=== PATIENT | female | born 1985 | race Caucasian/White ===

== ENCOUNTER 2019-05-14 12:20 | Emergency (ER) | payer OTHER ==
[2019-05-14 12:36] VITALS: RESP 18; TEMP 98.1
[2019-05-14 13:21] LABS: Amphetamine Screen,Urine Detected (NotDetected); Barbiturate Screen,Urine Not Detected (NotDetected); Benzodiazepines Screen,Urine Not Detected (NotDetected); Cocaine Screen,Urine Not Detected (NotDetected); Methadone Screen, Urine Not Detected (NotDetected); Opiate Screen,Urine Not Detected (NotDetected); Oxycodone Screen, Urine Not Detected (NotDetected); Phencyclidine Screen,Urine Not Detected (NotDetected); Tricyclic Antidepressant,Urine Not Detected (NotDetected); Urn Cannabinoid Scrn Not Detected (NotDetected)
--- NOTE | 2019-05-14 13:22 | ED ---
General Adult HPI - General Chief complaint: Psychiatric Symptoms Stated complaint: Confusion Time Seen by Provider: 05/14/19 12:37 Source: patient, family, RN notes reviewed, old records reviewed Mode of arrival: wheelchair - History of Present Illness Initial comments: 33 -year-old female presenting for psychiatric evaluation. Patient has had increased anxiety, suicidal ideation and drug use. She admits to using methamphetamine. She was trying to stop using drugs. She's had increased auditory hallucinations. She is requesting social work consultation. Patient is able answer questions but is somewhat reluctant. - Related Data Allergies Allergy/AdvReac Type Severity Reaction Status Date / Time No Known Allergies Allergy Verified 05/14/19 12:24 Review of Systems ROS Statement: Those systems with pertinent positive or pertinent negative responses have been documented in the HPI. ROS Other: All systems not noted in ROS Statement are negative. Past Medical History Past Medical History: No Reported History History of Any Multi-Drug Resistant Organisms: None Reported Past Surgical History: No Surgical Hx Reported Past Psychological History: Anxiety, Depression Smoking Status: Never smoker Past Alcohol Use History: None Reported Past Drug Use History: None Reported, Methamphetamine General Exam General appearance: alert, in no apparent distress Head exam: Present: atraumatic, normocephalic Eye exam: Present: normal appearance, PERRL ENT exam: Present: normal exam Neck exam: Present: normal inspection. Absent: tenderness, meningismus Respiratory exam: Present: normal lung sounds bilaterally. Absent: respiratory distress, wheezes Cardiovascular Exam: Present: regular rate, normal rhythm GI/Abdominal exam: Present: soft. Absent: distended, tenderness, guarding Extremities exam: Present: normal inspection Neurological exam: Present: alert, oriented X3, CN II-XII intact. Absent: motor sensory deficit Psychiatric exam: Present: depressed, anxious, flat affect, suicidal ideation Skin exam: Present: warm, dry, intact Course Vital Signs 05/14/19 12:24 Temperature 98.1 F Pulse Rate 88 Respiratory 18 Rate Blood Pressure 136/95 O2 Sat by Pulse 100 Oximetry Medical Decision Making - Medical Decision Making Patient evaluated by EPS, will require inpatient psychiatric evaluation and treatment. Patient will be transferred to outside facility. Patient is agreeable with plan. - Lab Data Lab Results 05/14/19 Range/Units 12:49 Urine Opiates Screen Not Detected (NotDetected) Ur Oxycodone Screen Not Detected (NotDetected) Urine Methadone Screen Not Detected (NotDetected) Ur Propoxyphene Screen Not Detected (NotDetected) Ur Barbiturates Screen Not Detected (NotDetected) U Tricyclic Antidepress Not Detected (NotDetected) Ur Phencyclidine Scrn Not Detected (NotDetected) Ur Amphetamines Screen Detected H (NotDetected) U Methamphetamines Scrn Detected H (NotDetected) U Benzodiazepines Scrn Not Detected (NotDetected) Urine Cocaine Screen Not Detected (NotDetected) U Marijuana (THC) Screen Not Detected (NotDetected) Disposition Clinical Impression: Depression, Suicidal ideation, Acute psychosis Disposition: TRANSFER TO PSYCH HOSP/UNIT Condition: Stable Is patient prescribed a controlled substance at d/c from ED?: No Referrals: None,Stated [Primary Care Provider] - 1-2 days Time of Disposition: 16:34 - Out of Hospital Transfer - Req. Specs Out of Hospital Transfer - Requested Specifics: Psychiatric Non-ICU
[2019-05-14 16:48] LABS: Amorphous Sediment,Urine Occasional /hpf; Appearance,Urine Clear (Clear); Bacteria,Urine Rare /hpf; Bilirubin,Urine Negative (Negative); Blood,Urine Negative (Negative); Color,Urine Yellow; Glucose,Urine (UA) Negative (Negative); Ketones,Urine Negative (Negative); Leukocyte Esterase,Urine Trace (Negative); Mucus,Urine Occasional /hpf; Nitrite,Urine Negative (Negative); PH, Urine 6.5 (5.0-8.0); Protein,Urine Negative (Negative); RBC,Urine 1 /hpf (0-5); Specific Gravity,Urine 1.022 (1.001-1.035); Squamous Epithelial Cell,Urine 11 /hpf (0-4); Urobilinogen,Urine <2.0 mg/dL (<2.0); WBC,Urine 9 /hpf (0-5)
[2019-05-14 17:10] LABS: HCT 35.4 % (34.0-46.0); HGB 11.7 gm/dL (11.4-16.0); MCH 29.4 pg (25.0-35.0); MCHC 33.1 g/dL (31.0-37.0); MCV 88.9 fL (80.0-100.0); Mean Platelet Volume 6.8; Platelet Count 330 k/uL (150-450); RBC 3.98 m/uL (3.80-5.40); RDW 12.8 % (11.5-15.5); WBC 8.6 k/uL (3.8-10.6)
[2019-05-14 17:28] LABS: ALT 8 U/L (9-52); AST 19 U/L (14-36); African American GFR (CKD) >90 (>60 ml/min/1.73 sqM); Albumin 3.9 g/dL (3.5-5.0); Alkaline Phosphatase 50 U/L (38-126); Anion Gap 9 mmol/L; Blood Urea Nitrogen 15 mg/dL (7-17); Calcium 9.4 mg/dL (8.4-10.2); Carbon Dioxide 24 mmol/L (22-30); Chloride 106 mmol/L (98-107); Glucose 130 mg/dL (74-99); Potassium 3.8 mmol/L (3.5-5.1); Sodium 139 mmol/L (137-145); Total Bilirubin 0.3 mg/dL (0.2-1.3); Total Protein 6.4 g/dL (6.3-8.2)
[2019-05-14] MEDS ORDERED: LORazepam 1 MG TAB PO STA ×2 (17:37→17:39)
[2019-05-14] MEDS ORDERED: ZIPRASIDONE 20 MG VIAL IM STA (17:50)
[2019-05-14 18:06] VITALS: BP 139/88; PULSE 91
== END 2019-05-14 18:20 ==
LOC: EC 12:20
DX: F23 Brief psychotic disorder (principal); R45.851 Suicidal ideations; F32.9 Major depressive disorder, single episode, unspecified; F19.951 Other psychoactive substance use, unspecified with psychoactive substance-induced psychotic disorder with hallucinations; F41.9 Anxiety disorder, unspecified
CPT/HCPCS: 82075; 36415; 80053; 85027; 81001; 81025; 80306; 99285; 96372; J3486

== ENCOUNTER 2021-03-05 12:18 | Emergency (ER) | payer OTHER ==
[2021-03-05 12:28] VITALS: BP 145/103; PULSE 88; RESP 18; TEMP 98.7
--- NOTE | 2021-03-05 12:47 | ED ---
General Adult HPI - General Chief complaint: Psychiatric Symptoms Stated complaint: pickup order Time Seen by Provider: 03/05/21 12:21 Source: patient, police Mode of arrival: ambulatory Limitations: no limitations - History of Present Illness Initial comments: Dictation was produced using [employer] dictation software. please excuse any grammatical, word or spelling errors. Chief Complaint: 35-year-old female presents to the emergency department for psychiatric evaluation History of Present Illness: Patient is a 35-year-old female she is brought in by [place] [employer]. There was a pickup order. Patient allegedly exhibiting psychotic symptoms. She states she is paranoid about cyber criminal ask directed against her. Patient allegedly has had psychiatric evaluation in the past. Patient denies any suicidal or homicidal ideation. She denies any visual or auditory hallucinations. She feels as though she is not needing of a psychiatric evaluation but is voluntarily willing to talk to her EPS specialist. Patient denies any medical complaints. The ROS documented in this emergency department record has been reviewed and confirmed by me. Those systems with pertinent positive or negative responses have been documented in the HPI. All other systems are other negative and/or noncontributory. PHYSICAL EXAM: General Impression: Alert and oriented x3, not in acute distress HEENT: Normocephalic atraumatic, extra-ocular movements intact, pupils equal and reactive to light bilaterally, mucous membranes moist. Cardiovascular: Heart regular rate and rhythm Chest: Able to complete full sentences, no retractions, no tachypnea Abdomen: abdomen soft, non-tender, non-distended, no organomegaly Musculoskeletal: Pulses present and equal in all extremities, no peripheral edema Motor: no focal deficits noted Neurological: CN II-XII grossly intact, no focal motor or sensory deficits noted Skin: Intact with no visualized rashes Psych: Paranoid ED course: 35-year-old female with paranoid behavior brought in by [place] [employer] for psychiatric evaluation secondary to package pick up order. Vital signs upon arrival are within acceptable limits. She was evaluated by psychiatry. Recommended admission. Prior to disposition to inpatient psychiatry patient eloped. Enforcement was contacted to find pa tient and bring her back to the emergency room. - Related Data Home Medications Medication Instructions Recorded Confirmed No Known Home Medications 03/05/21 03/05/21 Allergies Allergy/AdvReac Type Severity Reaction Status Date / Time No Known Allergies Allergy Verified 03/05/21 13:23 Review of Systems ROS Statement: Those systems with pertinent positive or pertinent negative responses have been documented in the HPI. ROS Other: All systems not noted in ROS Statement are negative. Past Medical History Past Medical History: No Reported History History of Any Multi-Drug Resistant Organisms: None Reported Past Surgical History: No Surgical Hx Reported Past Psychological History: Anxiety, Depression Smoking Status: Unknown if ever smoked Past Alcohol Use History: None Reported Past Drug Use History: None Reported, Methamphetamine General Exam Limitations: no limitations Course Vital Signs 03/05/21 12:19 Temperature 98.7 F Pulse Rate 88 Respiratory 18 Rate Blood Pressure 145/103 O2 Sat by Pulse 98 Oximetry Medical Decision Making - Lab Data Lab Results 03/05/21 03/05/21 Range/Units 12:45 12:45 Urine HCG, Qual Not Detected (Not Detectd) Urine Opiates Screen Not Detected (NotDetected) Ur Oxycodone Screen Not Detected (NotDetected) Urine Methadone Screen Not Detected (NotDetected) Ur Propoxyphene Screen Not Detected (NotDetected) Ur Barbiturates Screen Not Detected (NotDetected) U Tricyclic Antidepress Not Detected (NotDetected) Ur Phencyclidine Scrn Not Detected (NotDetected) Ur Amphetamines Screen Not Detected (NotDetected) U Methamphetamines Scrn Not Detected (NotDetected) U Benzodiazepines Scrn Not Detected (NotDetected) Urine Cocaine Screen Not Detected (NotDetected) U Marijuana (THC) Screen Not Detected (NotDetected) Disposition Clinical Impression: Psychosis Disposition: OTHER INSTITUTION NOT DEFINED Condition: Fair Additional Instructions: eloped Is patient prescribed a controlled substance at d/c from ED?: No Referrals: None,Stated [Primary Care Provider] - 1-2 days - Out of Hospital Transfer - Req. Specs Out of Hospital Transfer - Requested Specifics: Other Non-Acute (eloped)
[2021-03-05 13:03] LABS: Amphetamine Screen,Urine Not Detected (NotDetected); Barbiturate Screen,Urine Not Detected (NotDetected); Benzodiazepines Screen,Urine Not Detected (NotDetected); Cocaine Screen,Urine Not Detected (NotDetected); Methadone Screen, Urine Not Detected (NotDetected); Opiate Screen,Urine Not Detected (NotDetected); Oxycodone Screen, Urine Not Detected (NotDetected); Phencyclidine Screen,Urine Not Detected (NotDetected); Tricyclic Antidepressant,Urine Not Detected (NotDetected); Urn Cannabinoid Scrn Not Detected (NotDetected)
== END 2021-03-05 13:28 | disposition other institution (70) ==
LOC: EEVIPCON 12:18 → EC 12:18
DX: F29 Unspecified psychosis not due to a substance or known physiological condition (principal); F32.9 Major depressive disorder, single episode, unspecified; F41.9 Anxiety disorder, unspecified
CPT/HCPCS: 80306; 81025; 82075; 99285

== ENCOUNTER 2021-03-05 23:50 | Inpatient (IN) | payer MEDICAID, OTHER ==
--- NOTE | 2021-03-06 00:35 | ED ---
Psych HPI - General Chief Complaint: Psychiatric Symptoms Stated Complaint: Mental Health Time Seen by Provider: 03/05/21 23:53 Source: patient, RN notes reviewed, old records reviewed Mode of arrival: EMS Limitations: altered mental status, physical limitation - History of Present Illness Initial Comments: This is a 35-year-old female with acute psychosis patient brought in by PD after U opening prior to inpatient psychiatric admission. Patient is a evasive questioning, patient denies drug or alcohol abuse MD Complaint: altered mental status Associated Psychiatric Symptoms: none History of same: Yes Quality: other Improves With: none Worsens With: none Context: not taking psychiatric medications, significant life stressor Associated Symptoms: confusion Treatments Prior to Arrival: placed on mental health hold - Related Data Home Medications Medication Instructions Recorded Confirmed No Known Home Medications 03/05/21 03/05/21 Allergies Allergy/AdvReac Type Severity Reaction Status Date / Time No Known Allergies Allergy Verified 03/06/21 00:11 Review of Systems ROS Statement: Those systems with pertinent positive or pertinent negative responses have been documented in the HPI. ROS Other: All systems not noted in ROS Statement are negative. Past Medical History Past Medical History: No Reported History History of Any Multi-Drug Resistant Organisms: None Reported Past Surgical History: No Surgical Hx Reported Past Psychological History: Anxiety, Depression Smoking Status: Never smoker, Unknown if ever smoked Past Alcohol Use History: None Reported Past Drug Use History: Marijuana General Exam Limitations: no limitations, altered mental status General appearance: alert, in no apparent distress, anxious Head exam: Present: atraumatic, normocephalic, normal inspection Eye exam: Present: normal appearance, PERRL, EOMI. Absent: scleral icterus, conjunctival injection, periorbital swelling ENT exam: Present: normal exam, mucous membranes moist Neck exam: Present: normal inspection. Absent: tenderness, meningismus, lymphadenopathy Respiratory exam: Present: normal lung sounds bilaterally. Absent: respiratory distress, wheezes, rales, rhonchi, stridor Cardiovascular Exam: Present: regular rate, normal rhythm, normal heart sounds. Absent: systolic murmur, diastolic murmur, rubs, gallop, clicks GI/Abdominal exam: Present: soft, normal bowel sounds. Absent: distended, tenderness, guarding, rebound, rigid Extremities exam: Present: normal inspection, full ROM, normal capillary refill. Absent: tenderness, pedal edema, joint swelling, calf tenderness Back exam: Present: normal inspection Neurological exam: Present: alert, oriented X3, CN II-XII intact Psychiatric exam: Present: normal affect, normal mood Skin exam: Present: warm, dry, intact, normal color. Absent: rash Course Vital Signs 03/06/21 00:04 Temperature 98.4 F Pulse Rate 95 Respiratory 16 Rate Blood Pressure 125/81 O2 Sat by Pulse 97 Oximetry - Reevaluation(s) Reevaluation #1: 03/06/21 01:06 Medical record is reviewed Reevaluation #2: 03/06/21 01:06 Medically clear for psychiatric evaluation Medical Decision Making - Medical Decision Making 35 female on pickup order with acute psychosis brought in the ER for evaluation. Patient was able to somehow elope was found brought back to ER will be admitted for psychiatric illness - Lab Data Lab Results 03/05/21 03/05/21 Range/Units 23:57 23:59 Urine Opiates Screen Not Detected (NotDetected) Ur Oxycodone Screen Not Detected (NotDetected) Urine Methadone Screen Not Detected (NotDetected) Ur Propoxyphene Screen Not Detected (NotDetected) Ur Barbiturates Screen Not Detected (NotDetected) U Tricyclic Antidepress Not Detected (NotDetected) Ur Phencyclidine Scrn Not Detected (NotDetected) Ur Amphetamines Screen Not Detected (NotDetected) U Methamphetamines Scrn Not Detected (NotDetected) U Benzodiazepines Scrn Not Detected (NotDetected) Urine Cocaine Screen Not Detected (NotDetected) U Marijuana (THC) Screen Detected H (NotDetected) Coronavirus (PCR) Not Detected (Not Detectd) Disposition Clinical Impression: Psychosis Disposition: TRANSFER TO PSYCH HOSP/UNIT Condition: Fair Is patient prescribed a controlled substance at d/c from ED?: No
[2021-03-06 00:45] LABS: Amphetamine Screen,Urine Not Detected (NotDetected); Barbiturate Screen,Urine Not Detected (NotDetected); Benzodiazepines Screen,Urine Not Detected (NotDetected); Cocaine Screen,Urine Not Detected (NotDetected); Methadone Screen, Urine Not Detected (NotDetected); Opiate Screen,Urine Not Detected (NotDetected); Oxycodone Screen, Urine Not Detected (NotDetected); Phencyclidine Screen,Urine Not Detected (NotDetected); Tricyclic Antidepressant,Urine Not Detected (NotDetected); Urn Cannabinoid Scrn Detected (NotDetected)
[2021-03-06] MEDS ORDERED: MAGNESIUM HYDROXIDE 2,400 MG/10 ML CUP PO PRN (00:51)
[2021-03-06] MEDS ORDERED: MAG HYDROX/AL HYDROX/SIMETH 30 ML CUP PO PRN (00:51)
[2021-03-06] MEDS ORDERED: LORazepam 2 MG/ML INJ IM PRN (00:54)
[2021-03-06] MEDS ORDERED: HALOPERIDOL LACTATE 5 MG/ML 1 ML VIAL IM PRN (00:55)
--- NOTE | 2021-03-06 03:01 | P.CONS ---
History of Present Illness - Reason for Consult Consult date: 03/06/21 - History of Present Illness The patient was seen with the mental health unit [facility] [place]. I was never alone with the patient. Patient is a 35-year-old female with a PMH of psychiatric illnesses, marijuana abuse, and tobacco abuse who presented to the emergency room due to psychosis. The patient was manic and was admitted to the mental health unit where she was seen and evaluated. Patient reports that she is not sure why she was brought in. She went on about how she was framed for a cyber-crime and that the FBI is after her. She denied any physical complaints. She denied chest pain, shortness of breath, fever, chills, cough, nausea, vomiting, abdominal pain, diarrhea. Review of systems: Pertinent positives and negatives as discussed in HPI, a complete review of systems was performed and all other systems are negative. Physical examination: General: non toxic, no distress, appears at stated age, normal weight Derm: no unusual rashes/lesions no unusual ecchymoses, warm, dry Head: atraumatic, normocephalic, symmetric Eyes: EOMI, no lid lag, anicteric sclera, pupils equal round reactive to light ENT: Nose and ears atraumatic, no thrush, no pharyngeal erythema Neck: No thyromegaly, no cervical lymphadenopathy, trachea midline, supple Mouth: no lip lesion, mucus membranes moist Cardiovascular: S1S2 reg, no murmur, positive posterior tibial pulse bilateral, no edema, capillary refill less than 2 seconds Lungs: CTA bilateral, no rhonchi, no rales , no accessory muscle use Abdominal: soft, nontender to palpation, no guarding, no appreciable organomegaly, normal bowel sounds Ext: no gross muscle atrophy, muscle strength 5 out of 5 in all 4 extremities grossly, no contractures, Neuro: CN II-XI grossly intact, light touch intact all 4 extremities, finger to nose within normal limits, Psych: Alert, oriented, manic affect Assessment/plan Marijuana and tobacco abuse -Advised on importance of cessation Psychosis -As per psychiatry Thank you for allowing us to participate in the care of this patient. We will follow peripherally. Do not hesitate to contact us with questions. Someone can be reached from the [facility] hospitalist group at all hours of the day at [phone]. Past Medical History Past Medical History: No Reported History History of Any Multi-Drug Resistant Organisms: None Reported Past Surgical History: No Surgical Hx Reported Past Psychological History: Anxiety, Depression Smoking Status: Never smoker, Unknown if ever smoked Past Alcohol Use History: None Reported Past Drug Use History: Marijuana - Past Family History Father Family Medical History: COPD Medications and Allergies Home Medications Medication Instructions Recorded Confirmed Type No Known Home Medications 03/05/21 03/05/21 History Allergies Allergy/AdvReac Type Severity Reaction Status Date / Time No Known Allergies Allergy Verified 03/06/21 00:11 Physical Exam Vitals: Vital Signs Temp Pulse Pulse Resp BP BP Pulse Ox 03/06/21 01:43 98.4 F 85 18 132/89 98 03/06/21 00:04 98.4 F 95 16 125/81 97 Intake and Output 03/05/21 03/05/21 03/06/21 14:59 22:59 06:59 Other: Weight 57.7 kg Results Labs: Abnormal Lab Results - Last 24 Hours (Table) 03/05/21 Range/Units 23:59 U Marijuana (THC) Screen Detected H (NotDetected)
[2021-03-06 03:44] LABS: Appearance,Urine Cloudy (Clear); Bilirubin,Urine Negative (Negative); Blood,Urine Negative (Negative); Color,Urine Yellow; Glucose,Urine (UA) Negative (Negative); Ketones,Urine Negative (Negative); Leukocyte Esterase,Urine Large (Negative); Mucus,Urine Moderate /hpf; Nitrite,Urine Negative (Negative); Protein,Urine 1+ (Negative); RBC,Urine 2 /hpf (0-5); Squamous Epithelial Cell,Urine 12 /hpf (0-4); Urobilinogen,Urine <2.0 mg/dL (<2.0); WBC,Urine 8 /hpf (0-5)
[2021-03-06] MEDS: haloperidoL 5 MG TAB PO SCH ×5 (09:16→21:59)
[2021-03-06] MEDS: NICOTINE 14MG/24HR PATCH TRANSDERM SCH ×2 (09:16→09:28)
--- NOTE | 2021-03-06 11:06 | P.HP ---
Psychiatric H&P - . H&P Date: 03/06/21 History & Physical: Allergies Allergy/AdvReac Type Severity Reaction Status Date / Time No Known Allergies Allergy Verified 03/06/21 00:11 Vital Signs Temp 98.4 F 03/06/21 01:43 Pulse 85 03/06/21 01:43 Resp 18 03/06/21 01:43 BP 132/89 03/06/21 01:43 Pulse Ox 98 03/06/21 01:43 Intake & Output 03/05/21 03/06/21 03/06/21 18:59 06:59 18:59 Weight 57.7 kg Laboratory Last Values Urine Color Yellow 03/05/21 23:59 Urine Appearance Cloudy (Clear) H 03/05/21 23:59 Urine pH 5.0 (5.0-8.0) 03/05/21 23:59 Ur Specific Ida 1.030 (1.001-1.035) 03/05/21 23:59 Urine Protein 1+ (Negative) H 03/05/21 23:59 Urine Glucose (UA) Negative (Negative) 03/05/21 23:59 Urine Ketones Negative (Negative) 03/05/21 23:59 Urine Blood Negative (Negative) 03/05/21 23:59 Urine Nitrite Negative (Negative) 03/05/21 23:59 Urine Bilirubin Negative (Negative) 03/05/21 23:59 Urine Urobilinogen <2.0 mg/dL (<2.0) 03/05/21 23:59 Ur Leukocyte Esterase Large (Negative) H 03/05/21 23:59 Urine RBC 2 /hpf (0-5) 03/05/21 23:59 Urine WBC 8 /hpf (0-5) H 03/05/21 23:59 Ur Squamous Epith Cells 12 /hpf (0-4) H 03/05/21 23:59 Urine Mucus Moderate /hpf (None) H 03/05/21 23:59 Urine HCG, Qual Not Detected (Not Detectd) 03/05/21 23:59 Urine Opiates Screen Not Detected (NotDetected) 03/05/21 23:59 Ur Oxycodone Screen Not Detected (NotDetected) 03/05/21 23:59 Urine Methadone Screen Not Detected (NotDetected) 03/05/21 23:59 Ur Propoxyphene Screen Not Detected (NotDetected) 03/05/21 23:59 Ur Barbiturates Screen Not Detected (NotDetected) 03/05/21 23:59 U Tricyclic Antidepress Not Detected (NotDetected) 03/05/21 23:59 Ur Phencyclidine Scrn Not Detected (NotDetected) 03/05/21 23:59 Ur Amphetamines Screen Not Detected (NotDetected) 03/05/21 23:59 U Methamphetamines Scrn Not Detected (NotDetected) 03/05/21 23:59 U Benzodiazepines Scrn Not Detected (NotDetected) 03/05/21 23:59 Urine Cocaine Screen Not Detected (NotDetected) 03/05/21 23:59 U Marijuana (THC) Screen Detected (NotDetected) H 03/05/21 23:59 Coronavirus (PCR) Not Detected (Not Detectd) 03/05/21 23:57 03/06/21 11:05 IDENTIFYING DATA: Patient is a , unemployed, 35 year old female who was admitted under a pickup order for psychosis. HPI: Patient presented to the hospital initially on 03/05/2021, but then eloped from the emergency department. As per initial EPS assessment on 03/05/2021, the patient was brought in by police after she was petitioned by her public guardian for noncompliance with treatment, delusions, and paranoia. She was noted to be argumentative with the EPS nurse and was preoccupied with thoughts of conspiracy theories, cyber crime, and paranoia towards her parents. She did note that she believes that her mother was buying illegal medications and trafficking them throughout the country. As per petitioned from the patient's public guardian, the patient was offered treatment but refused. She wanted proof provided of who she was and who her father was. Her behavior was noted to be erratic and aggressive. There was concern for the safety of her parents and of her child. Upon evaluation on the psychiatric unit, the patient presents with significant psychotic symptoms. The patient states that this all began in 2019 when an individual is helping her with her car trouble. She believes that this individual then placed [employer] to her computer and since then, she has been experiencing numerous problems with application security developer and surveillance. The patient also states that this is likely related to the "FBI monitoring and watching my mother as she is selling Sudafed throughout the country." Aside from the paranoia, the patient does endorse aud itory hallucinations. She reports that when she is on the phone, she can hear other people in the background listening in on her conversations. She denies any visual hallucinations. The patient was hospitalized in [place] in 2019 for a similar presentation but the patient states that she was let go after 3 days and was only given Restoril as a medication. The patient does endorse significant symptoms of paulino. She reports pressured speech, and excessive energy. She does not endorse any impulsivity, mood lability, or increased goal-directed behavior. It should be noted though that the guardian does note that the patient has been erratic and aggressive with family. The patient vehemently denies any past suicidal ideation or suicide attempts. She reports no homicidal ideation, intention, and/or plan. The patient was admitted for further evaluation and management. A second clinical certificate was filled out. PAST PSYCHIATRIC HISTORY: Patient states that she has no previous psychiatric diagnoses. She was admitted to [place] in 2019. The patient is only able to recall being previously prescribed Restoril. Patient denies any psychiatric outpatient follow-up. Patient denies any history of suicide attempts in the past. PMH: Past Medical History: No Reported History History of Any Multi-Drug Resistant Organisms: None Reported Past Surgical History: No Surgical Hx Reported Past Psychological History: Anxiety, Depression Smoking Status: Never smoker, Unknown if ever smoked Past Alcohol Use History: None Reported Past Drug Use History: Marijuana ALLERGIES: NO KNOWN DRUG ALLERGIES CHEMICAL DEPENDENCY HISTORY: Patient reports that she does not smoke, drink, or use illicit drugs. The patient states that she stopped smoking marijuana in 2019 but she did test positive for cannabis on her urinary drug screen for this hospitalization. The patient states that prior to stopping her marijuana use in 2019, she engaged in daily marijuana use. FAMILY PSYCHIATRIC/SUBSTANCE USE HISTORY: No reported psychiatric history. No reported substance abuse history. SOCIAL HISTORY: Patient was born in [place] and raised in [facility]. The patient is and has 3 children. Currently her and her are as she is living with her parents and he is living with his parents. She reports that she has 3 children ages 17, 14, and 12. She reports that her 14-year-old daughter staying with her mother and father while her 17-year-old daughter and 12-year-old son are currently with her [id number]. The patient reports that she has a college degree. She is currently unemployed. MENTAL STATUS EXAM: General Appearance: Patient appears to be stated age is alert, difficult to direct, and attempts to cooperate. Patient appears to have fair hygiene and grooming. Behavior: Psychomotor activity is elevated. Eye contact is intense. Patient is constantly fidgeting and moving. Speech: Patient's speech is pressured, spontaneous, and difficult to interrupt. Mood/Affect: Patient reports their mood is confused, affect is labile, expansive, fearful. Suicidality/Homicidality: Patient denies having any homicidal ideation intent or plan. Denies any suicidal ideations intent or plan Perceptions: Patient denies any visual hallucinations but does endorse auditory hallucinations. Though content/process: Delusional thought content is evident. Delusions of surveillance, persecution, and bizarre delusions are evident. This associations and tangentiality is evident as well. Memory and concentration: AOX3, grossly intact for the purposes of this session. Can spell "WORLD" backwards Judgment and insight: Very poor STRENGTHS/WEAKNESSES: Strength is that the patient has stable housing and a supportive family. Weakness is that the patient engages in marijuana use and has severe mental illness with lack of insight. INTELLECT: average IMPRESSIONS: Schizoaffective disorder, bipolar type Cannabis use disorder PLAN: -Patient is admitted under involuntary status to [facility] for stabilization of psychiatric symptoms and safety. A second certification was completed and along with petition will be filed for court. -Medications : Will start patient on Invega 3 mg at bedtime for psychosis/mood stabilization - we will likely transition the patient to long-acting Invega Sustenna [place] 450 mg by mouth twice a day for mood stabilization -Ativan and Haldol PRN for agitation/aggression -Patient was counselled on substance abuse and desired to cut back on use -Patient was informed of the risks, benefits and side effects of the medication and patient verbally consented to taking the medications. Patient signed med consent form and was placed in chart. -Internal Medicine consult to perform medical evaluation and physical. -SW on board for discharge planning. Encourage patient to participate in groups to work on coping skills. 03/06/21 11:06
[2021-03-06] MEDS: PALIPERIDONE 3 MG TAB.ER.24 PO SCH (21:59)
[2021-03-06] MEDS: LITHIUM CARBONATE 150 MG CAP PO SCH (21:59)
[2021-03-07 08:01] LABS: Basophils # (A) 0.1 k/uL (0-0.2); Basophils % (A) 1 %; Eosinophils # (A) 0.3 k/uL (0-0.7); Eosinophils % (A) 3 %; HCT 42.7 % (34.0-46.0); HGB 13.4 gm/dL (11.4-16.0); Lymphocytes # (A) 3.1 k/uL (1.0-4.8); Lymphocytes % (A) 34 %; MCH 28.9 pg (25.0-35.0); MCHC 31.4 g/dL (31.0-37.0); MCV 92.3 fL (80.0-100.0); Monocytes # (A) 0.4 k/uL (0-1.0); Monocytes % (A) 4 %; Neutrophils # (A) 5.2 k/uL (1.3-7.7); Neutrophils % (A) 56 %; Platelet Count 352 k/uL (150-450); RBC 4.62 m/uL (3.80-5.40); RDW 13.7 % (11.5-15.5); WBC 9.4 k/uL (3.8-10.6)
[2021-03-07 08:14] LABS: ALT 10 U/L (4-34); AST 27 U/L (14-36); African American GFR (CKD) >90 (>60 ml/min/1.73 sqM); Albumin 4.5 g/dL (3.5-5.0); Alkaline Phosphatase 46 U/L (38-126); Anion Gap 8 mmol/L; Blood Urea Nitrogen 17 mg/dL (7-17); Calcium 9.8 mg/dL (8.4-10.2); Carbon Dioxide 25 mmol/L (22-30); Chloride 103 mmol/L (98-107); Glucose 90 mg/dL (74-99); Non-African American GFR(CKD) >90 (>60 ml/min/1.73 sqM); Potassium 4.3 mmol/L (3.5-5.1); Sodium 136 mmol/L (137-145); Total Bilirubin 0.6 mg/dL (0.2-1.3); Total Protein 7.1 g/dL (6.3-8.2)
[2021-03-07] MEDS: LITHIUM CARBONATE 150 MG CAP PO SCH ×2 (08:38→21:38)
[2021-03-07] MEDS: haloperidoL 5 MG TAB PO SCH ×4 (08:38→21:38)
[2021-03-07] MEDS: NICOTINE 14MG/24HR PATCH TRANSDERM SCH (08:38)
--- NOTE | 2021-03-07 11:22 | P.PN ---
Progress Note - Text Progress Note Date: 03/07/21 Interval History: Patient was seen in her room and was directable and agreeable to speak with service writer in her room. Patient refused any of her prescribed psychotropic medications yesterday stating that she did not need them as the cyberstalking and other paranoid delusions are actually happening. She states that she documented everything that has been going on and is planning to give the papers that she has been writing to her litigation attorney. The patient does state that she was able to sleep last night. She denies any issues with her appetite. She is not reporting any suicidal or homicidal ideation, intention, and/or plan. She continues to endorse paranoia and other bizarre delusions but is denying any auditory or visual hallucinations. The patient is requesting medications to treat the anxiety of these acute and ongoing stressors. She states that she does not need any antipsychotic medication if she is not psychotic. Mental Status Exam: General Appearance: Patient appears to be stated age is alert, difficult to direct, and intermittently cooperative. Behavior: Psychomotor activity is elevated. Eye contact is intense. Speech: Patient's speech is pressured, difficult to interrupt, loud in volume, very rapid. Mood/Affect: Mood is very anxious. Affect is intense and expansive. Suicidality/Homicidality: Patient denies having any suicidal or homicidal ideation intent or plan. Perceptions: Patient denies any visual hallucinations and denies any auditory hallucinations Though content/process: Significant bizarre delusional thought content and paranoid delusions are evident. Flight of ideas and loose associations are evident. Memory and concentration: AOX3, grossly intact for the purposes of this session Judgment and insight: Very poor Vital Signs Temp 97.8 F 03/07/21 02:08 Pulse 80 03/07/21 02:08 Resp 15 03/07/21 02:08 BP 145/93 03/07/21 02:08 Pulse Ox 98 03/06/21 01:43 Laboratory Results - Last 24 Hours 03/07/21 03/07/21 07:20 07:20 WBC 9.4 RBC 4.62 Hgb 13.4 Hct 42.7 MCV 92.3 MCH 28.9 MCHC 31.4 RDW 13.7 Plt Count 352 MPV 7.0 Neutrophils % 56 Lymphocytes % 34 Monocytes % 4 Eosinophils % 3 Basophils % 1 Neutrophils # 5.2 Lymphocytes # 3.1 Monocytes # 0.4 Eosinophils # 0.3 Basophils # 0.1 Sodium 136 L Potassium 4.3 Chloride 103 Carbon Dioxide 25 Anion Gap 8 BUN 17 Creatinine 0.71 Est GFR (CKD-EPI)AfAm >90 Est GFR (CKD-EPI)NonAf >90 Glucose 90 Calcium 9.8 Total Bilirubin 0.6 AST 27 ALT 10 Alkaline Phosphatase 46 Total Protein 7.1 Albumin 4.5 TSH 2.130 Assessment Schizoaffective disorder, bipolar type Cannabis use disorder Plan: -Patient continues to meet criteria for inpatient psychiatric admission for symptom stabilization and safety. The patient has been petitioned and certified and is scheduled to meet with an litigation attorney for possible deferral today. The patient will likely require a mental health court order due to the severity of her symptoms and lack of insight. -Medications: The patient has been refusing the following medications We will continue Invega 3 mg at bedtime for psychosis/mood stabilization response to transition the patient to Invega Sustenna We will continue lithium 450 mg by mouth twice a day for mood stabilization -When necessary Ativan and Haldol for agitation/aggression. -NRT - nicotine patch -SW on board for discharge planning. Encouraged the patient to participate in milieu.
[2021-03-07] MEDS: PALIPERIDONE 3 MG TAB.ER.24 PO SCH (21:19)
[2021-03-08] MEDS: LORazepam 1 MG TAB PO PRN ×2 (01:59→21:05)
[2021-03-08] MEDS ORDERED: haloperidoL 5 MG TAB PO PRN (08:22)
[2021-03-08] MEDS: NICOTINE 14MG/24HR PATCH TRANSDERM SCH (08:37)
[2021-03-08] MEDS: LITHIUM CARBONATE 150 MG CAP PO SCH ×2 (08:37→21:05)
--- NOTE | 2021-03-08 10:55 | P.PN ---
Progress Note - Text Progress Note Date: 03/08/21 Clinical Problems: Schizoaffective disorder bipolar type, cannabis use disorder Interim history: I reviewed the medical record and interviewed the patient. She is a 35-year-old female with a history of a chronic and persistent mental illness. She presented to unit involuntarily under a treatment order for noncompliance with treatment and worsening psychotic symptoms. During the initial assessment, her psychiatrist noted prominent psychotic symptoms including paranoia, paranoid delusions, ideas reference, disorganized thinking and auditory hallucinations. I approached her when she was in her room. She declined to come to the office for the interview. Her only concerned was correcting her admission orders (we had written the when necessary Haldol incorrectly as a scheduled dose). Her speech was disorganized and difficult to understand. Since admission to the unit she is posed no management problem. She has no episodes of behavioral dyscontrol. She has been compliant with prescribed antipsychotic paliperidone 3 mg at bedtime and lithium/milligrams twice a day. Mental status exam: She presented as a thin casually groomed female who was pleasant on approach. She had long braided hair. She made eye contact and appeared to attend to interview. She had no prominent physical abnormalities. She had a bright facial expression. She showed no abnormality of psychomotor activity. She had no abnormal involuntary movements. His speech was spontaneous with normal rhythm and volume. Her affect was stable and appropriate. She denied suicidal ideation and wishes. She denied homicidal ideation. She denied feeling hopeless, helpless or worthless. Her thinking was disorganized and illogical to the point where I could not fully evaluate her thought content. She denied hallucinations and did not appear to be responding to internal stimuli at this time. Assessment: She is pleasant and cooperated treatment. She is not refusing her prescribed antipsychotic medications and he is aware enough of treatment to identify an error we had made an her admission medications Plan: Continue inpatient treatment. Safety precautions. Change Haldol order to 5 mg 4 times a day when necessary for agitation acute psychosis. Continue Invega 3 mg at bedtime and lithium carbonate 450 mg twice a day. Obtain lithium level at steady state. Encourage participation in therapeutic groups and activities. Evaluate clinical status response to treatment daily basis.
[2021-03-08 16:29] LABS: Cholesterol 235 mg/dL (0-200); LDL Cholesterol,Calculated 119.8 mg/dL (0.0-131.0)
[2021-03-08] MEDS: PALIPERIDONE 3 MG TAB.ER.24 PO SCH (21:05)
[2021-03-09] MEDS: NICOTINE 14MG/24HR PATCH TRANSDERM SCH (08:21)
[2021-03-09] MEDS: LITHIUM CARBONATE 150 MG CAP PO SCH ×2 (08:23→20:55)
--- NOTE | 2021-03-09 12:50 | P.PN ---
Progress Note - Text Progress Note Date: 03/09/21 Clinical Problems: Schizoaffective disorder bipolar type, cannabis use disorder Interim history: I reviewed the medical record and interviewed the patient. She denied problems or concerns. She denied feeling depressed, hopeless or helpless. She denied feeling paranoid or frightened. She denied experiencing auditory or visual hallucinations. When I asked about some of her presenting complaints (paranoia, paranoid delusional beliefs, ideas reference and auditory hallucinations) she replied that she was "confused." She denied side effects to her current Medications-intake, and lithium. She attended one therapeutic groups yesterday and slept 8 hours. Mental status exam: She presented as a thin casually groomed female who was pleasant on approach. She made eye contact and appeared to attend to interview. She had no prominent physical abnormalities. She had a bright fac ial expression. She showed no abnormality of psychomotor activity. She had no abnormal involuntary movements. His speech was spontaneous with an increased rate but normal volume. Her affect was bright. She denied suicidal ideation and wishes. She denied homicidal ideation. She denied feeling hopeless, helpless or worthless. Her thinking was organized and goal directed. She denied hallucinations and did not appear to be responding to internal stimuli at this time. Assessment: Overall her clinical status is improved markedly (almost too well). Plan: Continue inpatient treatment. Safety precautions. Continue Invega 3 mg at bedtime and lithium carbonate 450 mg twice a day. Obtain lithium level at steady state. Haldol and her Ativan when necessary for agitation, aggression a cute psychosis. Encourage participation in therapeutic groups and activities. Evaluate clinical status response to treatment daily basis.
[2021-03-09] MEDS: PALIPERIDONE 3 MG TAB.ER.24 PO SCH (20:55)
[2021-03-09] MEDS: LORazepam 1 MG TAB PO PRN (20:56)
[2021-03-10] MEDS: LITHIUM CARBONATE 150 MG CAP PO SCH ×2 (07:57→21:12)
[2021-03-10] MEDS: NICOTINE 14MG/24HR PATCH TRANSDERM SCH (07:57)
--- NOTE | 2021-03-10 11:35 | P.PN ---
Progress Note - Text Progress Note Date: 03/10/21 Interval History: Patient was seen in her room and was directable and agreeable to speak with information writer in her room. The patient is currently reporting no suicidal or homicidal ideation, intention, and/or plan. She is denying any auditory or visual hallucinations. The patient reports mild bizarre delusional thoughts but these are less intense as before. She is also less forthcoming with any of her delusions. The patient has been adherent with her medications and is not endorsing any significant side effects and finds the medications be beneficial in terms of her mood and her thought process. She denies any issues regarding her appetite or sleep. She is agreeable with the plan to transition her to Invega Sustenna at this time. As per team meeting, the patient has been cooperative and attending groups with high participation. Mental Status Exam: General Appearance: Patient appears to be stated age is alert, directable, and cooperative. Good hygiene and grooming. Behavior: Psychomotor activity appears normal. Eye contact is appropriate. Speech: Patient's speech is spontaneous, slightly rapid, but no longer pressured and is much more interruptible. Mood/Affect: Mood is feeling good. Affect is euthymic to bright. Suicidality/Homicidality: Patient denies having any suicidal or homicidal ideation intent or plan. Perceptions: Patient denies any visual hallucinations and denies any auditory hallucinations Though content/process: the patient continues to endorse some bizarre delusional thoughts but is less forthcoming with them. Thought process appears to be linear and logical as compared to before. Memory and concentration: AOX3, grossly intact for the purposes of this session Judgment and insight: improving Assessment Schizoaffective disorder, bipolar type Cannabis use disorder Plan: -Patient continues to meet criteria for inpatient psychiatric admission for symptom stabilization and safety. The patient deferred mental health court. -Medications: The patient has been refusing the following medications We we will increase Invega to 6 mg at bedtime for psychosis/mood stabilization response to transition the patient to Invega Sustenna We will continue lithium 450 mg by mouth twice a day for mood stabilization. [place] level 0.5. -When necessary Ativan and Haldol for agitation/aggression. -NRT - nicotine patch -SW on board for discharge planning. Encouraged the patient to participate in milieu.
[2021-03-10] MEDS: LORazepam 1 MG TAB PO PRN (16:34)
[2021-03-10] MEDS: ACETAMINOPHEN TAB 325 MG TAB PO PRN (16:34)
[2021-03-10] MEDS ORDERED: PALIPERIDONE 6 MG TAB.ER.24 PO SCH (21:00)
[2021-03-11] MEDS: NICOTINE 14MG/24HR PATCH TRANSDERM SCH (08:10)
[2021-03-11] MEDS: LITHIUM CARBONATE 150 MG CAP PO SCH ×2 (08:11→20:23)
--- NOTE | 2021-03-11 11:25 | P.PN ---
Progress Note - Text Progress Note Date: 03/11/21 Interval History: Patient was seen in her room and was directable and agreeable to speak with rewriter in her room. The patient continues to report any suicidal or homicidal ideation, intention, pressure plan. She is denying any auditory or visual hallucinations. She is denying any overt symptoms of paranoia or delusions. When discussing her plans after discharge though, the patient becomes quite elevated and agitated, stating that a certain individual who hacked her computer has ruined her life. She states that she will now have to reapply to numerous job applications and requirements in order to return back to her life prior to her mental illness. The patient has been adherent with her medications and is not endorsing any significant side effects at this time. She denies any issues regarding her sleep and appetite. Patient reports that she was able to sleep quite well last night. She is agreeable with the plan for the transition to [facility]. Mental Status Exam: General Appearance: Patient appears to be stated age is alert, directable, and cooperative. Good hygiene and grooming. Behavior: Psychomotor activity appears normal. Eye contact is appropriate. Speech: Patient's speech is spontaneous, with normal rate and volume but when the patient becomes fixated on the reason for her mental health admission, the patient begins to speak in a pressured fashion. Mood/Affect: Mood is feeling good. Affect is euthymic but at times intense. Suicidality/Homicidality: Patient denies having any suicidal or homicidal ideation intent or plan. Perceptions: Patient denies any visual hallucinations and denies any auditory hallucinations Though content/process: the patient continues to endorse some bizarre delusional thoughts but is less forthcoming with them. Thought process appears to be linear and logical as compared to before. Memory and concentration: AOX3, grossly intact for the purposes of this session Judgment and insight: improving Vital Signs Temp 96.9 F L 03/11/21 06:16 Pulse 74 03/11/21 06:16 Resp 18 03/10/21 06:27 BP 127/81 03/11/21 06:16 Pulse Ox 98 03/10/21 06:27 Assessment Schizoaffective disorder, bipolar type Cannabis use disorder Plan: -Patient continues to meet criteria for inpatient psychiatric admission for symptom stabilization and safety. The patient deferred mental health court. -Medications: The patient has been refusing the following medications We we will increase Invega to 9 mg at bedtime for psychosis/mood stabilization response to transition the patient to Invega Sustenna tomorrow We will continue lithium 450 mg by mouth twice a day for mood stabilization. [place] level 0.5. -When necessary Ativan and Haldol for agitation/aggression. -NRT - nicotine patch -SW on board for discharge planning. Encouraged the patient to participate in milieu.
[2021-03-11] MEDS: LORazepam 1 MG TAB PO PRN (20:24)
[2021-03-11] MEDS ORDERED: PALIPERIDONE 3 MG TAB.ER.24 PO SCH (21:00)
[2021-03-12] MEDS ORDERED: PALIPERIDONE IM 234 MG/1.5 ML SYG IM ONE (09:00)
[2021-03-12 10:05] LABS: African American GFR (CKD) >90 (>60 ml/min/1.73 sqM); Anion Gap 10 mmol/L; Blood Urea Nitrogen 14 mg/dL (7-17); Carbon Dioxide 25 mmol/L (22-30); Chloride 102 mmol/L (98-107); Glucose 116 mg/dL (74-99); Lithium 0.4 mmol/L; Non-African American GFR(CKD) >90 (>60 ml/min/1.73 sqM); Potassium 3.8 mmol/L (3.5-5.1); Sodium 137 mmol/L (137-145)
[2021-03-12] MEDS: NICOTINE 14MG/24HR PATCH TRANSDERM SCH (10:24)
[2021-03-12] MEDS: LITHIUM CARBONATE 150 MG CAP PO SCH (10:24)
--- NOTE | 2021-03-12 11:16 | P.PN ---
Progress Note - Text Progress Note Date: 03/12/21 Interval History: Patient was seen in her room and was directable and agreeable to speak with artie leiva in the office. Currently, the patient is not endorsing any suicidal or homicidal ideation, intention, and/or plan. She is not reporting any auditory or visual hallucinations. She is not endorsing any paranoia or delusions. The patient has been in adherent with the medications and is not endorsing any significant side effects at this time. The patient states that she is expressing a strong desire to go home so that she can be with her family. The patient is asking if she is able to be discharged after visiting hours today. She was informed that she needs to be observed for 24 hours after receiving Invega Sustenna medication. Although disappointed, the patient is agreeable to this plan. She is not reporting any issues regarding her sleep or appetite. The patient has been attending groups and has been able to address her ADLs and hygiene. Mental Status Exam: General Appearance: Patient appears to be stated age is alert, directable, and cooperative. Good hygiene and grooming. Behavior: Psychomotor activity appears normal. Eye contact is appropriate. Speech: Patient's speech is spontaneous, nonpressured, normal rate, tone, and volume. Mood/Affect: Mood is feeling good. Affect is euthymic to bright. Suicidality/Homicidality: Patient denies having any suicidal or homicidal ideation intent or plan. Perceptions: Patient denies any visual hallucinations and denies any auditory hallucinations Though content/process: Patient is currently not endorsing any delusional thought content. Thought process based to be linear, logical, and goal oriented. Memory and concentration: AOX3, grossly intact for the purposes of this session Judgment and insight: improving Laboratory Results - Last 24 Hours 03/12/21 08:46 Sodium 137 Potassium 3.8 Chloride 102 Carbon Dioxide 25 Anion Gap 10 BUN 14 Creatinine 0.78 Est GFR (CKD-EPI)AfAm >90 Est GFR (CKD-EPI)NonAf >90 Glucose 116 H Calcium 10.0 Harper 0.4 Vital Signs Temp 97.5 F L 03/12/21 06:14 Pulse 92 03/12/21 06:14 Resp 16 03/12/21 06:14 BP 120/73 03/12/21 06:14 Pulse Ox 99 03/12/21 06:14 Assessment Schizoaffective disorder, bipolar type Cannabis use disorder Plan: -Patient continues to meet criteria for inpatient psychiatric admission for symptom stabilization and safety. The patient deferred mental health court. -Medications: Start Invega sustenna 234 mg IM today. Discontinue Invega oral medication. [place] level 0.4. We will increase lithium to 450 mg by mouth every morning and 600 mg by mouth daily at bedtime for mood stabilization -When necessary Ativan and Haldol for agitation/aggression. -NRT - nicotine patch -SW on board for discharge planning. Encouraged the patient to participate in milieu.
[2021-03-12] MEDS: LORazepam 1 MG TAB PO PRN (20:38)
[2021-03-12] MEDS: LITHIUM CARBONATE 300 MG CAP PO SCH (20:38)
[2021-03-13] MEDS: LITHIUM CARBONATE 150 MG CAP PO SCH (08:23)
[2021-03-13] MEDS: LORazepam 1 MG TAB PO PRN ×2 (11:08→20:45)
--- NOTE | 2021-03-13 12:16 | P.PN ---
Progress Note - Text Progress Note Date: 03/13/21 Interval History: Patient was seen in her room and was directable and agreeable to speak with wr iter in the office. The patient became very upset today when informed that there was concern about her discharge brought up by her guardian. The guardian expressed that the patient has no housing to return to upon discharge. The patient's own home was derelict and the patient's parents are temporary guardians of her children causing a conflict of interest. The patient's in-laws have also declined to house the patient upon discharge. The patient's guardian is requesting the patient be placed in housing. The patient became very agitated when hearing this news and endorsed significant paranoia towards her staff therapist accusing her of derailing the plans for discharge and also towards her mother. The patient was heard yelling on the phone to her that she "might as well kill myself if I'm going to be here another week." She also states she wanted to kill her mother. When the patient calmed down she expressed she was just overwhelmed and frustrated at this situation. Despite this, this provider discussed with the patient at length that it is her psychotic symptoms that caused her to be admitted and it was her psychotic symptoms that were on display when she was agitated that requires further observation. The patient then suggested she would go to her mnyseps-yo-gdf's place instead. She is agreeable to sign a release of information for her [id number] and we will coordinate with the patient's guardian. Mental Status Exam: General Appearance: Patient appears to be stated age is alert, difficult to direct and intermittently cooperative. Good hygiene and grooming. Behavior: Psychomotor activity appears elevated. Eye contact is appropriate. Speech: Patient's speech is rapid, but otherwise interruptible and linear. Mood/Affect: Mood is angry. Affect is distraught, scared, anxious, and angry. Suicidality/Homicidality: Patient verbalized homicidal and suicidal threats over the phone. Perceptions: Patient denies any visual hallucinations and denies any auditory hallucinations Though content/process: Patient endorses some paranoia. Thought process based to be linear, with a flight of ideas. Memory and concentration: AOX3, grossly intact for the purposes of this session Judgment and insight: poor Vital Signs Temp 98.1 F 03/13/21 08:23 Pulse 80 09/09/21 11:09 Resp 16 03/13/21 08:23 BP 125/82 03/13/21 11:09 Pulse Ox 99 03/13/21 08:23 Assessment Schizoaffective disorder, bipolar type Cannabis use disorder The patient was initially presenting well and ready for discharge with significant improvement in her mood, hygiene, speech pattern, affect, and was less forthcoming with her delusions. When receiving news that discharge was impeded, the patient became very distraught and decompensated significantly. She began to exhibit a flight of ideas, paranoid thoughts, mood lability and tangentiality of speech. Discharge will be held at this time. Plan: -Patient continues to meet criteria for inpatient psychiatric admission for symptom stabilization and safety. The patient deferred mental health court. -We will pursue a [facility]AL[facility] for the patient's [id number]-[id number]. If the niqpkbb-[id number] is agreeable to house the patient, and the guardian is in agreement, we can look at discharge tomorrow. Should the ddbjigi-hi-ggw be unable to confirm housing for this patient or guardian is not in agreement, we discussed with the patient the plan for [facility] assessment and intake on wednesday with plans to enroll her in ACT or other comprehensive outpatient services. The patient's lithium will be possibly titrated over the weekend to control her target symptoms and to provide more reassurance on the patient's ability to take care of her self in the outpatient setting. -Medications: Continue Invega sustenna. First loading dose 234 mg IM was administered on 03/12/2021. Next loading dose of 156 mg IM due on 03/19/2021. Continue lithium 450 mg by mouth every morning and 600 mg by mouth daily at bedtime for mood stabilization. Consider increase in lithium over the weekend. Will recheck lithium level on wednesday should the patient continue to be present on the unit. -When necessary Ativan and Haldol for agitation/aggression. -NRT - nicotine patch -SW on board for discharge planning. Encouraged the patient to participate in milieu.
[2021-03-13] MEDS: LITHIUM CARBONATE 300 MG CAP PO SCH (20:44)
[2021-03-14] MEDS: LITHIUM CARBONATE 150 MG CAP PO SCH (08:40)
[2021-03-14] MEDS: LORazepam 1 MG TAB PO PRN ×2 (11:48→20:38)
--- NOTE | 2021-03-14 12:36 | PN ---
PROGRESS NOTE DATE OF SERVICE: 03/14/2021 CHIEF COMPLAINT: The patient was admitted for agitation, psychosis with paranoid delusions and auditory hallucinations. INTERVAL HISTORY: The patient continues to struggle. She had a quiet day yesterday. She did attend two groups yesterday and seemed to function adequately in the groups. She comes out on the unit. She will interact some with others. She did receive Ativan 2 mg p.r.n. 2045 hours for anxiety. She sleeps fair. Today she has been up. She comes out on the unit. She seems to be doing about the same. Her lithium dose has been increased relative to a blood level of 0.4 yesterday morning. She is very focused on discharge. When I went through the information regarding discharge planning, she was quite distressed about what has been documented and discussed in treatment team. She asserts that she has stable places to live, though my understanding is that her guardian had raised significant concerns and that there was coordination with [facility] in regard to her living situation when she is out of the hospital. She stated that her brother will be accepting of her coming to live there. Information that I gave to her was that that situation was not clarified between [facility] and her guardian. Apparently other options for her living situation also were not available. The patient was distressed by this, though after some discussion she seemed to be a little more amenable to considering options. Apparently there is concern that she may need to go to a residential, as there may not be other spaces available. The patient continues to be quite adamant about the idea that what was documented on admission as circumstances for her coming into the hospital were simply not accurate. She denies that she has any kind of paranoia, delusional thinking or that she had hallucinations. She has been taking medications and reports no problems with them. MENTAL STATUS EXAM: Patient was quite restless. She initially came into the room and sat down and made the statement that if she was not being set up for discharge today, she had nothing more to say. She then got up and walked out of the room. She came back several times with various questions or statements about her situation. Initially she was in an angry mood, though then she seemed to get into a more compliant manner as time went on. Her affect mostly was intense, her mood dysphoric. She was significantly distressed. She continues to make indications of having paranoid thoughts. She voiced no thoughts of harm to self or others, though as noted yesterday by Dr. Walker, she had made statements of threats to others. On cognitive exam she was oriented and alert. ASSESSMENT: I will continue the current diagnosis and treatment plan. I will continue psychotropic medications the same. Her lithium dose has been increased to 450 mg in the morning, 600 mg in the evening. She will be getting a lithium level tomorrow morning. She has received Invega Sustenna. Discharge planning is ongoing, apparently with the primary issue being housing. We will focus on stabilization and discharge planning. MMODL / IJN: [id number] /
[2021-03-14] MEDS: LITHIUM CARBONATE 300 MG CAP PO SCH (20:37)
[2021-03-14] MEDS: LORATADINE 10 MG TAB PO SCH (22:11)
[2021-03-15] MEDS: LITHIUM CARBONATE 150 MG CAP PO SCH (08:47)
[2021-03-15] MEDS: LORATADINE 10 MG TAB PO SCH (08:47)
[2021-03-15] MEDS: LORazepam 1 MG TAB PO PRN (19:44)
--- NOTE | 2021-03-15 19:51 | PN ---
PROGRESS NOTE DATE OF SERVICE: 03/15/2021 CHIEF COMPLAINT: The patient was admitted for agitation, psychosis with paranoid delusions and auditory hallucinations. INTERVAL HISTORY: The patient has been doing fair. She had difficulty yesterday early in the day in dealing with issues regarding discharge. She anticipated that she would be able to leave the hospital yesterday. She was somewhat unclear about her status in regard to the court process. She did better as the day went on. It is not clear that she is in agreement with the process, especially related to her legal standing. She did attend two groups yesterday. She comes out in the day area and wanders about. She slept fairly well last night. Today she has been up. She seemed to be a little more relaxed today. She made some references to the fact that she should have been able to be discharged on Wednesday. Also she seemed to be a little more accepting of the fact that she is in the hospital through the weekend. When I reviewed medication issues with the patient, she was able to describe in detail the process relating to her long-acting injectable. She noted no side effects or problems with the medications. [place] level this morning was 0.7. MENTAL STATUS: Patient gave fairly good eye contact. She was somewhat restless. She answered questions appropriately. Her thoughts were clear. She did not say a lot. She was not spontaneous, although she was somewhat interactive. Her affect was constricted, her mood reserved. She did not appear to be significantly distressed. There was no indication of thought disorder, though whether she persists in paranoid thinking remains to be seen. She voiced no thoughts of harm. Cognition was clear. ASSESSMENT: I will continue the current diagnosis and treatment plan. I will continue psychotropic medications the same. I briefly reviewed medication issues with the patient. I discussed potential side effects and issues regarding metabolics and movement disorder issues as it relates to her Invega. I briefly reviewed issues related to concerns for lithium toxicity. We will focus on stabilization and discharge planning. KALEIGH / GABBYN: [id number] /
[2021-03-15] MEDS: LITHIUM CARBONATE 300 MG CAP PO SCH (21:12)
[2021-03-16] MEDS ORDERED: PALIPERIDONE IM 156 MG/ML SYG IM SCH (08:00)
[2021-03-16] MEDS: LITHIUM CARBONATE 150 MG CAP PO SCH (08:41)
[2021-03-16] MEDS: LORATADINE 10 MG TAB PO SCH (08:42)
--- NOTE | 2021-03-16 13:22 | PN ---
PROGRESS NOTE DATE OF SERVICE: 03/16/2021. CHIEF COMPLAINT: The patient was admitted for agitation, psychosis with paranoid delusions and auditory hallucinations. INTERVAL HISTORY: The patient has been doing fairly well. She seems to be doing better overall. She had a quiet day yesterday. She was out on the unit. She interacts with others. She has been attending some of the groups and is noted to be appropriate in the groups. She said she slept well last night. Today she has been up and out. She interacts with others. She is appropriate in her interactions with staff and peers. She seems to show better mood. She notes that she got her second injection today and was able to describe details about her understanding of long-term use of Invega Sustenna. She also noted that her lithium level this morning was 0.7, which was accurate, and she also stated that she understood the lithium level was supposed to be at least 0.6. She stated that she was comfortable on the unit. She said that she would rather be on the unit right now until things get settled for her rather than the possibility of going to a prison or a alf. She said that she had made some contacts and is set up with a PCP. She made the statement that she had made contact with [facility], which [facility], for counseling and noted that there was a 2-week wait and then she would be able to get in for counseling. She tolerates her psychotropic medications. MENTAL STATUS: Patient sat with a little restlessness. She gave good eye contact. She answered questions appropriately. Her thoughts were clear, coherent and goal-directed. She was spontaneous and interactive. Her affect was a little intense though not significantly so. She smiled. She had a friendly manner. Her mood was even. She did not appear distressed. There was no indication of thought disorder. She voiced no thoughts of harm. Cognition was clear. ASSESSMENT: I will continue the current diagnosis and treatment plan. I will continue psychotropic medications the same. I did briefly review issues related to lithium toxicity. It is noteworthy that the patient has quite good concepts regarding the medications she is on and understands issues regarding followup for her medications. The patient understands that she will need to be talking with Social Work and Dr. Walker with likely further information tomorrow after the treatment team meeting in regard to discharge planning. We will focus on stabilization and discharge planning. MMODL / IJN: [id number] /
[2021-03-16] MEDS: LORazepam 1 MG TAB PO PRN (18:12)
[2021-03-16] MEDS: LITHIUM CARBONATE 300 MG CAP PO SCH (20:47)
[2021-03-17] MEDS: ACETAMINOPHEN TAB 325 MG TAB PO PRN ×3 (04:57→13:42)
[2021-03-17 04:59] VITALS: RESP 14; TEMP 97.7
[2021-03-17] MEDS: LORATADINE 10 MG TAB PO SCH (08:19)
[2021-03-17] MEDS: LITHIUM CARBONATE 150 MG CAP PO SCH (08:19)
[2021-03-17] MEDS: LORazepam 1 MG TAB PO PRN (08:55)
[2021-03-17 08:56] VITALS: BP 140/70; PULSE 107
[2021-03-17] MEDS ORDERED: IBUPROFEN 600 MG TAB PO STA (09:23)
--- NOTE | 2021-03-17 11:04 | P.DS ---
Providers Date of admission: 03/06/21 00:49 Expected date of discharge: 03/17/21 Attending physician: Yehuda Walker MD Consults: 03/06/21 00:51 Consult Physician Routine Consulting Provider: Teresita Hamilton Consult Reason/Comments: H and P Do you want consulting provider notified?: Already Contacted Primary care physician: Stated None - Discharge Diagnosis(es) (1) Schizoaffective disorder, bipolar type Current Visit: Yes Status: Acute Priority: High (2) Cannabis use disorder, mild, abuse Current Visit: Yes Status: Chronic Priority: Medium Hospital Course: Admission HPI: Patient is a , unemployed, 35 year old female who was admitted under a pickup order for psychosis. Patient presented to the hospital initially on 03/05/2021, but then eloped from the emergency department. As per initial EPS assessment on 03/05/2021, the patient was brought in by police after she was petitioned by her public guardian for noncompliance with treatment, delusions, and paranoia. She was noted to be argumentative with the EPS nurse and was preoccupied with thoughts of conspiracy theories, cyber crime, and paranoia towards her parents. She did note that she believes that her mother was buying illegal medications and trafficking them throughout the country. As per petitioned from the patient's public guardian, the patient was offered treatment but refused. She wanted proof provided of who she was and who her father was. Her behavior was noted to be erratic and aggressive. There was concern for the safety of her parents and of her child. Upon evaluation on the psychiatric unit, the patient presents with significant psychotic symptoms. The patient states that this all began in 2019 when an individual is helping her wi th her car trouble. She believes that this individual then placed [employer] to her computer and since then, she has been experiencing numerous problems with cyber threat analyst and surveillance. 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 She reports that when she is on the phone, she can hear other people in the background listening in on her conversations. She denies any visual hallucinations. The patient was hospitalized in [place] in 2019 for a similar presentation but the patient states that she was let go after 3 days and was only given Restoril as a medication. The patient does endorse significant symptoms of paulino. She reports pressured speech, and excessive energy. She does not endorse any impulsivity, mood lability, or increased goal-directed behavior. It should be noted though that the guardian does note that the patient has been erratic and aggressive with family. The patient vehemently denies any past suicidal ideation or suicide attempts. She reports no homicidal ideation, intention, and/or plan. The patient was admitted for further evaluation and management. A second clinical certificate was filled out. Hospital course: Upon admission to the unit patient was initially presenting as manic, delusional, and psychotic. She was initially very hesitant towards medications. Patient was firmly delusional believing that she was under surveillance and subject to cyber crime. A second clinical certificate was filled out. The patient was started on a regimen of Invega and lithium. Although she was hesitant at first, the patient was adherent with her medications. Over the c ourse of hospitalization, the patient displayed gradual improvement in regards her mood stabilization and her psychosis. The patient did meet with an family law attorney and decided to defer mental health court. Her medications were gradually titrated. The patient received her first dose of Invega Sustenna on 03/12/2021. Initially, the plan is to discharge the patient but due to concerns from the patient's guardian, discharge was withheld. The patient also significantly decompensated upon hearing that she was not to be discharged. She endorsed both suicidal and homicidal ideation as well as further endorsed her original delusional thoughts. Eventually, the patient was able to calm down. The patient was continued on her medication regimen which she was adherent to and her lithium was titrated to a final dose of 450 mg in the morning and 600 mg at bedtime. Conrad level was within therapeutic range. Furthermore, the patient was given the second loading dose of Invega Sustenna 156 mg IM on 03/16/2021. The patient was also scheduled for an intake appointment with [facility] on this day of discharge. The patient is currently not reporting any suicidal or homicidal ideation, intention, and/or plan. She denies any access to firearms or weapons. She denies any auditory or visual hallucinations. She is currently not reporting any paranoia or delusions. Patient is primarily concerned with the toothache that she is currently experiencing due to poor dentition and a chipped tooth in her upper left mouth. Otherwise, the patient is not endorsing any significant psychiatric pathology at this time. The patient is future and goal oriented. The patient was counseled at length on wanting all substances including alcohol, marijuana, and methamphetamines. Furthermore, the patient was provided psychoeducation on her medications as well as informed on the need for adherence with her medications and with her outpatient appointments. Prior to discharge, family meeting will be arranged by social media campaign manager and seeing questions for safety. As per notes provided to this provider, the patient would be returning to her family as he would like to give her a chance while she is on the medications. Mental status exam: General Appearance: Patient appears to be stated age is alert, pleasant, and cooperative. Patient is in no acute distress and has fair hygiene and grooming. Behavior: Patient is calmly seated without any agitated behavior. The patient is endorsing mouth pain but is otherwise not endorsing any odd or bizarre behavior. Speech: Patient's speech is fluent and nonpressured. Mood/Affect: Patient reports their mood is "feeling ready to go except for this tooth ache", affect is congruent and euthymic. Suicidality/Homicidality: Patient denies having any suicidal or homicidal ideation intent or plan. Perceptions: Patient denies any auditory or visual hallucinations. Though content/process: There is no evidence of any delusional thought content and thought process is linear and goal-directed. Patient is future oriented. Memory and concentration: AOX3, grossly intact for the purposes of this session. Can spell "WORLD" backwards correctly. Judgment and insight: Improved with guarded prognosis Vital Signs Temp 97.7 F 03/17/21 04:58 Pulse 107 H 03/17/21 08:55 Resp 14 03/17/21 04:58 BP 140/70 03/17/21 08:55 Pulse Ox 95 03/15/21 06:28 Impression: Schizoaffective disorder, bipolar type Cannabis use disorder Plan: -Continue with discharge today as patient has improved and stabilized psychiatrically and is not currently an imminent threat to self and/or others. Patient will remain at chronically elevated risk for harm to self and/or others due to her impulsivity and history of substance abuse. -Continue medications: Invega Sustenna 156 mg IM was less administered on . Her next dose is due on 04/13/2021. Conrad 450 mg by mouth every morning and 600 mg by mouth daily at bedtime Motrin 600 mg by mouth every 8 hours for pain -Patient was counseled on the need for medication compliance and appropriate follow-up at mental health and also primary care for medical issues. Patient ve rbalized understanding and agreed. -Social work to arrange for and conduct family meeting to ensure safety upon discharge and answer any questions/concerns. Social work also to arrange for patients follow up appointments with [facility] for psychiatric care along with follow up with primary care provider. -Patient counseled on abstaining from recreational drugs and marijuana and alcohol. Was informed/educated on the adverse effects on their physical and mental health. Patient verbally agreed and understood. -Patient was instructed to return to the hospital or seek immediate medical care if their psychiatric or medical symptoms do worsen or reoccur. -Psychoeducation and supportive therapy provided to patient. Risks and benefits of pharmacological treatment versus the risks and benefits of nontreatment weight and discussed. Informed consent discussion held. Common side effects of psychotropics discussed such as, but not limited to headache, GI disturbance, sexual dysfunction, movement disorders, sedation, and orthostatic hypotension. Life threatening and blackbox warnings of prescribed medications also discussed. Potential risks of operating a vehicle or heavy machinery discussed with patient at length. Advised on importance of compliance and a reliable and responsible manner. Patient advised to review FDA consumer labeling of all medications prior to taking. Patient verbalized understanding of potential risks, and agrees with current treatment plan. Patient advised to medically contact physician/emergency personnel if any acute changes in condition occur. Laboratory Results WBC 9.4 k/uL (3.8-10.6) 03/07/21 07:20 RBC 4.62 m/uL (3.80-5.40) 03/07/21 07:20 Hgb 13.4 gm/dL (11.4-16.0) 03/07/21 07:20 Hct 42.7 % (34.0-46.0) 03/07/21 07:20 MCV 92.3 fL (80.0-100.0) 03/07/21 07:20 MCH 28.9 pg (25.0-35.0) 03/07/21 07:20 MCHC 31.4 g/dL (31.0-37.0) 03/07/21 07:20 RDW 13.7 % (11.5-15.5) 03/07/21 07:20 Plt Count 352 k/uL (150-450) 03/07/21 07:20 MPV 7.0 03/07/21 07:20 Neutrophils % 56 % 03/07/21 07:20 Lymphocytes % 34 % 03/07/21 07:20 Monocytes % 4 % 03/07/21 07:20 Eosinophils % 3 % 03/07/21 07:20 Basophils % 1 % 03/07/21 07:20 Neutrophils # 5.2 k/uL (1.3-7.7) 03/07/21 07:20 Lymphocytes # 3.1 k/uL (1.0-4.8) 03/07/21 07:20 Monocytes # 0.4 k/uL (0-1.0) 03/07/21 07:20 Eosinophils # 0.3 k/uL (0-0.7) 03/07/21 07:20 Basophils # 0.1 k/uL (0-0.2) 03/07/21 07:20 Sodium 137 mmol/L (137-145) 03/12/21 08:46 Potassium 3.8 mmol/L (3.5-5.1) 03/12/21 08:46 Chloride 102 mmol/L (98-107) 03/12/21 08:46 Carbon Dioxide 25 mmol/L (22-30) 03/12/21 08:46 Anion Gap 10 mmol/L 03/12/21 08:46 BUN 14 mg/dL (7-17) 03/12/21 08:46 Creatinine 0.78 mg/dL (0.52-1.04) 03/12/21 08:46 Est GFR (CKD-EPI)AfAm >90 (>60 ml/min/1.73 sqM) 03/12/21 08:46 Est GFR (CKD-EPI)NonAf >90 (>60 ml/min/1.73 sqM) 03/12/21 08:46 Glucose 116 mg/dL (74-99) H 03/12/21 08:[address] Glu mg/dL 97 03/07/21 07:20 Hemoglobin A1c 5.0 % (4.0-6.0) 03/07/21 07:20 Calcium 10.0 mg/dL (8.4-10.2) 03/12/21 08:46 Total Bilirubin 0.6 mg/dL (0.2-1.3) 03/07/21 07:20 AST 27 U/L (14-36) 03/07/21 07:20 ALT 10 U/L (4-34) 03/07/21 07:20 Alkaline Phosphatase 46 U/L (38-126) 03/07/21 07:20 Total Protein 7.1 g/dL (6.3-8.2) 03/07/21 07:20 Albumin 4.5 g/dL (3.5-5.0) 03/07/21 07:20 Triglycerides 86.0 mg/dL (0.0-149.0) 03/07/21 07:20 Cholesterol 235 mg/dL (0-200) H 03/07/21 07:20 LDL Cholesterol, Calc 119.8 mg/dL (0.0-131.0) 03/07/21 07:20 VLDL Cholesterol, Calc 17.20 mg/dL (5.00-40.00) 03/07/21 07:20 HDL Cholesterol 98.0 mg/dL (40.0-60.0) H 03/07/21 07:20 Cholesterol/HDL Ratio 2.40 03/07/21 07:20 TSH 2.130 mIU/L (0.465-4.680) 03/07/21 07:20 Urine Color Yellow 03/05/21 23:59 Urine Appearance Cloudy (Clear) H 03/05/21 23:59 Urine pH 5.0 (5.0-8.0) 03/05/21 23:59 Ur Specific [place] 1.030 (1.001-1.035) 03/05/21 23:59 Urine Protein 1+ (Negative) H 03/05/21 23:59 Urine Glucose (UA) Negative (Negative) 03/05/21 23:59 Urine Ketones Negative (Negative) 03/05/21 23:59 Urine Blood Negative (Negative) 03/05/21 23:59 Urine Nitrite Negative (Negative) 03/05/21 23:59 Urine Bilirubin Negative (Negative) 03/05/21 23:59 Urine Urobilinogen <2.0 mg/dL (<2.0) 03/05/21 23:59 Ur Leukocyte Esterase Large (Negative) H 03/05/21 23:59 Urine RBC 2 /hpf (0-5) 03/05/21 23:59 Urine WBC 8 /hpf (0-5) H 03/05/21 23:59 Ur Squamous Epith Cells 12 /hpf (0-4) H 03/05/21 23:59 Urine Mucus Moderate /hpf (None) H 03/05/21 23:59 Urine HCG, Qual Not Detected (Not Detectd) 03/05/21 23:59 Urine Opiates Screen Not Detected (NotDetected) 03/05/21 23:59 Ur Oxycodone Screen Not Detected (NotDetected) 03/05/21 23:59 Urine Methadone Screen Not Detected (NotDetected) 03/05/21 23:59 Ur Propoxyphene Screen Not Detected (NotDetected) 03/05/21 23:59 Ur Barbiturates Screen Not Detected (NotDetected) 03/05/21 23:59 U Tricyclic Antidepress Not Detected (NotDetected) 03/05/21 23:59 Ur Phencyclidine Scrn Not Detected (NotDetected) 03/05/21 23:59 Ur Amphetamines Screen Not Detected (NotDetected) 03/05/21 23:59 U Methamphetamines Scrn Not Detected (NotDetected) 03/05/21 23:59 U Benzodiazepines Scrn Not Detected (NotDetected) 03/05/21 23:59 Conrad 0.6 mmol/L 03/17/21 07:18 Urine Cocaine Screen Not Detected (NotDetected) 03/05/21 23:59 U Marijuana (THC) Screen Detected (NotDetected) H 03/05/21 23:59 Coronavirus (PCR) Not Detected (Not Detectd) 03/05/21 23:57 Allergies Allergy/AdvReac Type Severity Reaction Status Date / Time No Known Allergies Allergy Verified 03/06/21 00:11 Patient Condition at Discharge: Stable Plan - Discharge Summary Discharge Rx Participant: No New Discharge Prescriptions: New Paliperidone IM [Invega Sustenna] 156 mg IM QMONTHLY #1 each Conrad Carbonate 450 mg PO DAILY 30 Days cap Conrad Carbonate 600 mg PO HS 30 Days cap Ibuprofen [Motrin] 600 mg PO Q8HR PRN #21 tab PRN Reason: Pain Discharge Medication List Conrad Carbonate 450 mg PO DAILY 30 Days cap 03/13/21 [Rx] Conrad Carbonate 600 mg PO HS 30 Days cap 03/13/21 [Rx] Ibuprofen [Motrin] 600 mg PO Q8HR PRN #21 tab 03/17/21 [Rx] Paliperidone IM [Invega Sustenna] 156 mg IM QMONTHLY #1 each 03/17/21 [Rx] Follow up Appointment(s)/Referral(s): [facility] [Outside] - 03/17/21 12:30 pm ([facility] intake @ 1230 [address] [facility] @ 1400) [facility] [NON-STAFF] - 1 Week Activity/Diet/Wound Care/Special Instructions: Activity and diet as tolerated. Avoid the use of street drugs and alcohol. Take all medications as prescribed. When you are in need of refills on your medications please contact your medical provider and/or outpatient psychiatrist to have this done. Please go to scheduled outpatient appointment for aftercare treatment. If symptoms return or become worse, call the crisis line at and/or go to the nearest emergency room for evaluation. Discharge Disposition: HOME SELF-CARE
== END 2021-03-17 14:15 | disposition home or self-care (01) | DRG 885 ==
LOC: EC 23:50 → 3MHU 03-06 00:49
PROVIDERS: ADMIT Psychiatry & Neurology Psychiatry; ATTEND Psychiatry & Neurology Psychiatry
DX: F25.0 Schizoaffective disorder, bipolar type (principal); R45.851 Suicidal ideations; F12.10 Cannabis abuse, uncomplicated; F41.9 Anxiety disorder, unspecified; K08.89 Other specified disorders of teeth and supporting structures; R45.850 Homicidal ideations; T43.595A Adverse effect of other antipsychotics and neuroleptics, initial encounter; Z56.0 Unemployment, unspecified; Z71.6 Tobacco abuse counseling; F17.210 Nicotine dependence, cigarettes, uncomplicated; Z71.51 Drug abuse counseling and surveillance of drug abuser; Z82.5 Family history of asthma and other chronic lower respiratory diseases; Z91.19 Patient's noncompliance with other medical treatment and regimen; Z20.822 Contact with and (suspected) exposure to COVID-19
CPT/HCPCS: 80048; 80053; 80061; 80178; 80306; 81001; 81025; 82075; 83036; 84443; 85025; 87635; 99285

== ENCOUNTER 2021-04-12 14:55 | Inpatient (IN) | payer MEDICAID, OTHER ==
--- NOTE | 2021-04-12 17:27 | ED ---
Psych HPI - General Chief Complaint: Psychiatric Symptoms Stated Complaint: Pick-up Order Time Seen by Provider: 04/12/21 16:26 Source: patient, police, RN notes reviewed Mode of arrival: ambulatory Limitations: no limitations - History of Present Illness Initial Comments: This is a 35 year old female presents emergency Department with police for psychiatric evaluation. Patient was picked up on a pickup order. Patient states that she was on complaint last month because she was admitted here. She denies suicidal or homicidal denies any medication noncompliance patient offers no complaints. - Related Data Home Medications Medication Instructions Recorded Confirmed Keeler Carbonate ER [Lithobid] 450 mg PO DAILY 04/12/21 04/12/21 Loratadine [Claritin] 10 mg PO DAILY 04/12/21 04/12/21 Paliperidone IM [Invega Sustenna] 156 mg IM Q30D 04/12/21 04/12/21 Previous Rx's Medication Instructions Recorded Keeler Carbonate 600 mg PO HS 30 Days cap 03/13/21 Ibuprofen [Motrin] 600 mg PO Q8HR PRN #21 tab 03/17/21 Allergies Allergy/AdvReac Type Severity Reaction Status Date / Time No Known Allergies Allergy Verified 04/12/21 18:26 Review of Systems ROS Statement: Those systems with pertinent positive or pertinent negative responses have been documented in the HPI. ROS Other: All systems not noted in ROS Statement are negative. Past Medical History Past Medical History: No Reported History History of Any Multi-Drug Resistant Organisms: None Reported Past Surgical History: No Surgical Hx Reported Past Psychological History: Anxiety, Depression Smoking Status: Never smoker, Unknown if ever smoked Past Alcohol Use History: None Reported Past Drug Use History: Marijuana - Past Family History Father Family Medical History: COPD General Exam Limitations: no limitations General appearance: alert, in no apparent distress Head exam: Present: atraumatic, normocephalic, normal inspection Eye exam: Present: normal appearance, PERRL, EOMI. Absent: scleral icterus, conjunctival injection, periorbital swelling ENT exam: Present: normal exam, normal oropharynx, mucous membranes moist Neck exam: Present: normal inspection. Absent: tenderness, meningismus, lymphadenopathy Respiratory exam: Present: normal lung sounds bilaterally. Absent: respiratory distress, wheezes, rales, rhonchi, stridor Cardiovascular Exam: Present: regular rate, normal rhythm, normal heart sounds. Absent: systolic murmur, diastolic murmur, rubs, gallop, clicks GI/Abdominal exam: Present: soft, normal bowel sounds. Absent: distended, tenderness, guarding, rebound, rigid Neurological exam: Present: alert, oriented X3 Psychiatric exam: Present: normal affect, normal mood Course Vital Signs 04/12/21 04/12/21 04/12/21 15:42 19:00 20:01 Temperature 98 F Pulse Rate 72 88 Respiratory 18 18 18 Rate Blood Pressure 123/83 146/101 O2 Sat by Pulse 98 100 Oximetry Medical Decision Making - Medical Decision Making Patient presented with police for psychiatric evaluation. Patient is pickup order demand for admit patient will be admitted for psychiatric evaluation - Lab Data Lab Results 04/12/21 Range/Units 17:22 Urine Opiates Screen Not Detected (NotDetected) Ur Oxycodone Screen Not Detected (NotDetected) Urine Methadone Screen Not Detected (NotDetected) Ur Propoxyphene Screen Not Detected (NotDetected) Ur Barbiturates Screen Not Detected (NotDetected) U Tricyclic Antidepress Not Detected (NotDetected) Ur Phencyclidine Scrn Not Detected (NotDetected) Ur Amphetamines Screen Detected H (NotDetected) U Methamphetamines Scrn Detected H (NotDetected) U Benzodiazepines Scrn Not Detected (NotDetected) Urine Cocaine Screen Not Detected (NotDetected) U Marijuana (THC) Screen Not Detected (NotDetected) Disposition Clinical Impression: Schizoaffective disorder, bipolar type Disposition: TRANSFER TO PSYCH HOSP/UNIT Referrals: Jocelyn Earl MD [Primary Care Provider] - 1-2 days
[2021-04-12 17:47] LABS: Amphetamine Screen,Urine Detected (NotDetected); Barbiturate Screen,Urine Not Detected (NotDetected); Benzodiazepines Screen,Urine Not Detected (NotDetected); Cocaine Screen,Urine Not Detected (NotDetected); Methadone Screen, Urine Not Detected (NotDetected); Opiate Screen,Urine Not Detected (NotDetected); Oxycodone Screen, Urine Not Detected (NotDetected); Phencyclidine Screen,Urine Not Detected (NotDetected); Tricyclic Antidepressant,Urine Not Detected (NotDetected); Urn Cannabinoid Scrn Not Detected (NotDetected)
[2021-04-12] MEDS ORDERED: ACETAMINOPHEN TAB 325 MG TAB PO PRN (22:30)
[2021-04-12] MEDS ORDERED: MAGNESIUM HYDROXIDE 2,400 MG/10 ML CUP PO PRN (22:30)
[2021-04-12] MEDS ORDERED: MAG HYDROX/AL HYDROX/SIMETH 30 ML CUP PO PRN (22:30)
[2021-04-12] MEDS ORDERED: LORazepam 2 MG/ML INJ IM PRN (22:38)
[2021-04-12] MEDS ORDERED: HALOPERIDOL LACTATE 5 MG/ML 1 ML VIAL IM PRN (22:40)
[2021-04-12] MEDS ORDERED: haloperidoL 5 MG TAB PO PRN (22:40)
[2021-04-12] MEDS ORDERED: IBUPROFEN 600 MG TAB PO PRN (22:41)
[2021-04-13] MEDS: LORazepam 1 MG TAB PO PRN ×2 (01:36→20:50)
[2021-04-13] MEDS: LITHIUM CARBONATE ER 450 MG TABLET.ER PO SCH (08:22)
[2021-04-13] MEDS: LORATADINE 10 MG TAB PO SCH (08:22)
[2021-04-13] MEDS: NICOTINE 14MG/24HR PATCH TRANSDERM SCH (08:22)
--- NOTE | 2021-04-13 10:40 | P.HP ---
Psychiatric H&P - . H&P Date: 04/13/21 History & Physical: IDENTIFYING DATA: Mikaela is a 35-year-old female admitted to the psychiatric unit involuntarily HISTORY OF PRESENT ILLNESS: I reviewed the medical record and interviewed the patient. Her analysis consultant from [facility] initiated a Demand for Hearing indicating that she refuses to accept prescribed treatment. The patient was perpllexed as to why the analysis consultant initiated the Demand for hearing. She stated that she's been compliant with her medication, had an appointment with the psychiatrist and has kept her appointments for her Invega injections. She met with the analysis consultant but had missed 2 appointments with the peers network support administrator. She stated that the peers network support administrator canceled one of the appointments and did not show for the second appointment. Mikaela arrange to reschedule the appointments for this Wednesday, Wednesday and . The EPS nurse confirmed that she had rescheduled the appointments. Mikaela provided a circumstantial explanation about the peers network support administrator coming to her house but she was in the home. On admission though her serum lithium level was less than 0.2 and urine drug screen was positive for amphetamines and methamphetamines. She admitted to taking one dose of Adderall given to her by a friend but denied that she had consistently used Adderall. She denied that she had used methamphetamine. She denied other problems or concerns. She denied problems with sleep, appetite or mood. She denied that she has been feeling depressed or having thoughts of or suicide. She denied persistent and uncontrolled anxiety. She denied experiencing elevated mood or sustained irritability. She denied experiencing auditory, visual or olfactory hallucinations, ideas of reference etc. PAST PSYCHIATRIC HISTORY: We discharged from our unit in March 2021 with the diagnoses of schizoaffective disorder bipolar type and cannabis use disorder. Her only other psychiatric admission was to [facility] in 2019. She has no history of suicide attempts or gestures. PAST MEDICAL HISTORY: She is no history of major medical problems. ALLERGIES: No drug ALLERGIES SUBSTANCE USE HISTORY: She alleges he stopped smoking marijuana in 2018 and did not test positive for cannabinoids during this admission. She denied use of other drugs with the exception of the single dose of Adderall. FAMILY PSYCHIATRIC/SUBSTANCE USE HISTORY: She denied a history of psychiatric or substance use problems. LEGAL HISTORY: She has a legal guardian. SOCIAL HISTORY: She is [facility] and raised in [place]. She is and has 3 children. She lives with her in their own home. Her children ages 1214 and 17 are related to care of the extended family. She graduated from high school and received a pitcher's degree. She is currently unemployed. MENTAL STATUS EXAM: She presented as a thin casually groomed 35-year-old female who was pleasant on approach. She made eye contact and attended to the interview. She had no distinguishing features or prominent physical abnormalities. She had a blunted but bright facial expression. She was alert and oriented to person, place and time. She showed no abnormality of psychomotor activity. She was not restless or agitated. Her speech was spontaneous with decreased rate and rhythm but normal volume. Her affect was stable and appropriate. She denied suicidal ideation and wishes. She denied homicidal ideation. She denied feeling hopeless, helpless or worthless. She ruminated over circumstances that led to this hospitalization particularly misunderstanding about her appointments. She did not express ideas reference, paranoid ideation, magical ideation or delusions. Her thinking was abstract and associations were coherent, logical and goal directed. She did not demonstrate clang associations, perseveration or neologisms. She denied hallucinations and did not appear to be responding to internal stimuli. Global impression of intellect is average. She is aware of illness and need for treatment. STRENGTHS: Good physical health, supportive family, stable housing WEAKNESSES: Chronic mental illness, difficulties with compliance with outpatient treatment, amphetamine use, possible noncompliance with lithium IMPRESSION: She is a 35-year-old female who has a reported diagnosis of schizoaffective disorder. She was discharged from our unit in March 2021 on deferral status. Her outpatient therapist initiated a Demand for Hearing for noncompliance with outpatient treatment. The patient disagrees that she was noncompliant and provided an alternate explanation for the apparent missed appointments. However, her urine drug screen was positive for amphetamines and a serum lithium level was low. She should best be treated inpatient basis with combination of psychopharmacology and multimodal therapy. PRINCIPLE DIAGNOSIS: Schizoaffective disorder bipolar type in partial remission, history of cannabis use disorder, rule out methamphetamine use disorder RECOMMENDATION: Admit to the psychiatric unit. Safety precautions. Demand hearing pending. body and fender worker to complete initial psychosocial assessment and coordinate discharge and aftercare consult medicine for initial physical exam and medical history. Continue lithium 600 mg at bedtime and 450 mg daily. Clarify the date of last administration of Invega 156 mg IM. Habitrol for smoking cessation. Haldol and/or Ativan for agitation acute psychosis. Obtain collateral information from treatment health. Encourage participation in therapeutic groups and activities. Evaluate clinical status response to treatment daily basis. Allergies Allergy/AdvReac Type Severity Reaction Status Date / Time No Known Allergies Allergy Verified 04/12/21 18:26 Vital Signs Temp 97.8 F 04/13/21 06:42 Pulse 87 04/13/21 06:42 Resp 14 04/13/21 06:42 BP 127/80 04/13/21 06:42 Pulse Ox 98 04/12/21 22:38 Intake & Output 04/12/21 04/13/21 04/13/21 18:59 06:59 18:59 Weight 64.864 kg Laboratory Last Values Urine Opiates Screen Not Detected (NotDetected) 04/12/21 17:22 Ur Oxycodone Screen Not Detected (NotDetected) 04/12/21 17:22 Urine Methadone Screen Not Detected (NotDetected) 04/12/21 17:22 Ur Propoxyphene Screen Not Detected (NotDetected) 04/12/21 17:22 Ur Barbiturates Screen Not Detected (NotDetected) 04/12/21 17:22 U Tricyclic Antidepress Not Detected (NotDetected) 04/12/21 17:22 Ur Phencyclidine Scrn Not Detected (NotDetected) 04/12/21 17:22 Ur Amphetamines Screen Detected (NotDetected) H 04/12/21 17:22 U Methamphetamines Scrn Detected (NotDetected) H 04/12/21 17:22 U Benzodiazepines Scrn Not Detected (NotDetected) 04/12/21 17:22 [place] <0.2 mmol/L 04/12/21 23:19 Urine Cocaine Screen Not Detected (NotDetected) 04/12/21 17:22 U Marijuana (THC) Screen Not Detected (NotDetected) 04/12/21 17:22 Coronavirus (PCR) Not Detected (Not Detectd) 04/12/21 21:50 04/13/21 10:19
[2021-04-13 14:11] LABS: ALT 9 U/L (4-34); AST 27 U/L (14-36); African American GFR (CKD) >90 (>60 ml/min/1.73 sqM); Albumin 4.5 g/dL (3.5-5.0); Alkaline Phosphatase 58 U/L (38-126); Anion Gap 13 mmol/L; Blood Urea Nitrogen 13 mg/dL (7-17); Calcium 10.1 mg/dL (8.4-10.2); Carbon Dioxide 22 mmol/L (22-30); Chloride 103 mmol/L (98-107); Glucose 94 mg/dL (74-99); Non-African American GFR(CKD) >90 (>60 ml/min/1.73 sqM); Potassium 4.1 mmol/L (3.5-5.1); Sodium 138 mmol/L (137-145); Total Bilirubin 0.6 mg/dL (0.2-1.3); Total Protein 7.1 g/dL (6.3-8.2)
[2021-04-13 14:32] LABS: Basophils # (A) 0.1 k/uL (0-0.2); Basophils % (A) 1 %; Eosinophils # (A) 0.1 k/uL (0-0.7); Eosinophils % (A) 2 %; HCT 38.5 % (34.0-46.0); HGB 12.6 gm/dL (11.4-16.0); Lymphocytes # (A) 1.8 k/uL (1.0-4.8); Lymphocytes % (A) 22 %; MCH 29.5 pg (25.0-35.0); MCHC 32.6 g/dL (31.0-37.0); MCV 90.6 fL (80.0-100.0); Mean Platelet Volume 7.3; Monocytes # (A) 0.3 k/uL (0-1.0); Monocytes % (A) 4 %; Neutrophils # (A) 5.7 k/uL (1.3-7.7); Neutrophils % (A) 70 %; Platelet Count 338 k/uL (150-450); RBC 4.25 m/uL (3.80-5.40); RDW 13.6 % (11.5-15.5); WBC 8.1 k/uL (3.8-10.6)
[2021-04-13] MEDS: LITHIUM CARBONATE 300 MG CAP PO SCH (20:50)
[2021-04-13 22:52] LABS: Chol/HDL Ratio 2.32 Ratio; LDL Cholesterol,Calculated 97.3 mg/dL (0.0-131.0); VLDL Calculation 12.08 mg/dL (5.00-40.00)
--- NOTE | 2021-04-14 00:06 | P.PN ---
Progress Note - Text Progress Note Date: 04/13/21 Patient declined evaluation, she informed RN that she is feeling fine and she doesn't want to talk to the medical doctor
[2021-04-14] MEDS: NICOTINE 14MG/24HR PATCH TRANSDERM SCH (08:04)
[2021-04-14] MEDS: LITHIUM CARBONATE ER 450 MG TABLET.ER PO SCH (08:05)
[2021-04-14] MEDS: LORATADINE 10 MG TAB PO SCH (08:05)
--- NOTE | 2021-04-14 12:07 | P.PN ---
Progress Note - Text Progress Note Date: 04/14/21 Interval History: Patient was seen in her room and was directable and agreeable to speak with advertising copywriter in her room. The patient maintains that she has no idea why she was brought into the hospital again stating that she only missed 1 appointment. The patient was informed that we have received an email from her guardian that states: "The patient was initially staying with her parents in [place] and sometime around 04/03/21, she left her home with her parents and moved back to her marital home which was completely uninhabitable. The patient started cleaning it, and after doing that, the patient's , his new girlfriend, his new girlfriend's ex, and possibly their 3 children moved into the home. It was after her 's return that Mikaela was noted to be more symptomatic. She was noted stopped indicating with her children and her parents. She missed her daughter's going to homecoming. The patient was also noted to become verbally aggressive with [facility] and even threatened one of the peers support on the team. All of her behaviors indicated that she was not taking her oral medications and using meth." The patient admits to this provider that she did use methamphetamines this past Wednesday. When informed that she told the weekend physician that the Adderall, the patient relented saying that she did live. She states that she was scared to tell the truth because she is afraid that it would get her into more trouble and keep her in a psychiatric unit longer. The patient denies much of what was written in the email. She states that she has been in contact with her children and with her parents that she has been consistent with her medications. Of note, the patient does admit that she was psychotic during her last admission and does acknowledge that the belief that her mother was running a pseudoephedrine was preposterous. She currently is denying any suicidal or homicidal ideation, intention, and/or plan. She is not reporting any auditory or visual hallucinations. At this time, the patient is denying any paranoia or other delusions. The patient continues to be upset that she has a guardian that is attempting to dictate whether she will be able to return home or not. The patient is concerned about signing a release of information she does not wish to let her mother know that she did methamphetamines. She states that she is afraid that she would not be able to return home. She contains that her parents and her do not get along and that this is a major stressor for her. She states that she cannot abandon her after they have been together for so many years. Mental Status Exam: General Appearance: Patient appears to be stated age is alert, directable, and cooperative. Good hygiene and grooming. Behavior: Patient is calmly seated without any agitated behavior. Psychomotor activity slightly elevated. Patient becomes tearful. Speech: Patient's speech is fluent and nonpressured. Rapid in rate but interruptible. Mood/Affect: Mood is "upset", affect is congruent, tearful, and expansive. Suicidality/Homicidality: Patient denies any suicidal or homicidal ideation, intention, and/or plan. Perceptions: Patient denies any auditory or visual hallucinations Though content/process: There is no evidence of any delusional thought content and thought process is linear and goal-directed. Memory and concentration: AOX3, grossly intact for the purposes of this session Judgment and insight: Improving mildly Vital Signs Temp 97.8 F 04/14/21 06:46 Pulse 92 04/14/21 06:46 Resp 18 04/14/21 06:46 BP 112/77 04/14/21 06:46 Pulse Ox 98 04/12/21 22:38 Intake & Output 04/13/21 04/14/21 04/14/21 18:59 06:59 18:59 Weight 64.864 kg Laboratory Results - Last 24 Hours 04/13/21 04/13/21 04/13/21 12:00 12:46 12:46 WBC 8.1 RBC 4.25 Hgb 12.6 Hct 38.5 MCV 90.6 MCH 29.5 MCHC 32.6 RDW 13.6 Plt Count 338 MPV 7.3 Neutrophils % 70 Lymphocytes % 22 Monocytes % 4 Eosinophils % 2 Basophils % 1 Neutrophils # 5.7 Lymphocytes # 1.8 Monocytes # 0.3 Eosinophils # 0.1 Basophils # 0.1 Sodium Potassium Chloride Carbon Dioxide Anion Gap BUN Creatinine Est GFR (CKD-EPI)AfAm Est GFR (CKD-EPI)NonAf Glucose Estimated Ave Glu mg/dL 94 Hemoglobin A1c 4.9 Calcium Total Bilirubin AST ALT Alkaline Phosphatase Total Protein Albumin Triglycerides Cholesterol LDL Cholesterol, Calc VLDL Cholesterol, Calc HDL Cholesterol Cholesterol/HDL Ratio TSH Urine HCG, Qual Not Detected 04/13/21 12:46 WBC RBC Hgb Hct MCV MCH MCHC RDW Plt Count MPV Neutrophils % Lymphocytes % Monocytes % Eosinophils % Basophils % Neutrophils # Lymphocytes # Monocytes # Eosinophils # Basophils # Sodium 138 Potassium 4.1 Chloride 103 Carbon Dioxide 22 Anion Gap 13 BUN 13 Creatinine 0.77 Est GFR (CKD-EPI)AfAm >90 Est GFR (CKD-EPI)NonAf >[address] Glu mg/dL Hemoglobin A1c Calcium 10.1 Total Bilirubin 0.6 AST 27 ALT 9 Alkaline Phosphatase 58 Total Protein 7.1 Albumin 4.5 Triglycerides 60.40 Cholesterol 192.00 LDL Cholesterol, Calc 97.3 VLDL Cholesterol, Calc 12.08 HDL Cholesterol 82.60 H Cholesterol/HDL Ratio 2.32 TSH 1.580 Urine HCG, Qual Assessment Schizoaffective disorder, bipolar type Cannabis use disorder Methamphetamine use disorder Plan: -Patient continues to meet criteria for inpatient psychiatric admission for symptom stabilization and safety. A demand for court hearing has been filed. -Medications: Continue lithium 450 mg by mouth every morning, and 6 inch milligrams by mouth daily at bedtime We will continue Invega Sust[place] 156 mg IM with next dose to be administered tomorrow. We will encourage the patient to sign a release of information in order for us to speak with the patient's mother so that we may obtain collateral information and plan for discharge. The patient's guardian is desiring that the patient is placed in a custodial setting. -When necessary Ativan and Haldol for agitation/aggression. -NRT - nicotine patch -SW on board for discharge planning. Encouraged the patient to participate in milieu.
[2021-04-14] MEDS: LORazepam 1 MG TAB PO PRN (18:06)
[2021-04-14] MEDS: LITHIUM CARBONATE 300 MG CAP PO SCH (20:56)
[2021-04-15] MEDS: LORATADINE 10 MG TAB PO SCH (08:04)
[2021-04-15] MEDS: LITHIUM CARBONATE ER 450 MG TABLET.ER PO SCH (08:04)
[2021-04-15] MEDS: NICOTINE 14MG/24HR PATCH TRANSDERM SCH (08:04)
[2021-04-15] MEDS ORDERED: PALIPERIDONE IM 156 MG/ML SYG IM SCH (09:00)
--- NOTE | 2021-04-15 12:27 | P.PN ---
Progress Note - Text Progress Note Date: 04/15/21 Interval History: Patient was seen in the [facility] and was directable to speak with the typewriter operator automatic in the office. The patient signed a release of information for her mother and father. The patient was present in the room when this provider called her mother and her mother was placed on speaker phone. The patient's mother states the patient was stable when she was discharged in March and was performing her ADLs, helping out in the home, was no longer psychotic, and was interacting with her family appropriately. She states that when the patient left the home to fix her own home, her met up with her and the patient then decompensated. The patient's mother states that the patient missed [facility] appointments and furthermore when interacting with [facility] she presented as altered, elevated, and agitated. Her eyes were noted to be dilated. The patient's mother suspected methamphetamine use which the patient admitted to. The patient's mother informed this provider about the reason for guardianship and the patient's loss of custody over her children. The patient was reportedly doing well until February of 2019. 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 The patient then got into using methamphetamines through her which lead to her to decline mentally. She was noted to be catatonic after coming off the drugs and was sent to [facility] for mental health treatment. She was then stable upon discharge but 1 week after she began displaying psychotic symptoms, and therefore she lost custody of her children. It was at this time she obtained a guardian as well. The patient's mother states the patient is stable when on medications and not using any drugs. She reports the patient has a significant history of methamphetamine abuse. The patient relented today that she has engaged in more methamphetamine use than she initially told the treatment team. She states she did not want to "talk about it because it's something taboo and shameful." This provder discussed with the patient at length that methamphetamines lead to her problems with guardianship, losing custody of her children, and losing her career. The patient has a difficult time acknowledging it to be the primary problem. Mental Status Exam: General Appearance: Patient appears to be stated age is alert, directable, and cooperative. Good hygiene and grooming. Behavior: Patient is calmly seated without any agitated behavior. Psychomotor activity slightly elevated. Patient becomes tearful. Speech: Patient's speech is fluent and nonpressured. Rapid in rate but interruptible. Mood/Affect: Mood is "Don't need to be heret", affect is congruent, tearful, irritable. Suicidality/Homicidality: Patient denies any suicidal or homicidal ideation, intention, and/or plan. Perceptions: Patient denies any auditory or visual hallucinations Though content/process: There is no evidence of any delusional thought content and thought process is linear and goal-directed. Memory and concentration: AOX3, grossly intact for the purposes of this session Judgment and insight: Improving mildly Vital Signs Temp 98.2 F 04/15/21 06:58 Pulse 92 04/15/21 06:58 Resp 16 04/15/21 06:58 BP 111/67 04/15/21 06:58 Pulse Ox 98 04/15/21 06:58 Assessment Schizoaffective disorder, bipolar type Cannabis use disorder Methamphetamine use disorder Borderline Personality Disorder (as per history) Plan: -Patient continues to meet criteria for inpatient psychiatric admission for symptom stabilization and safety. A demand for court hearing has been filed. -Consider a substance abuse treatment order for the patient. -Medications: Continue lithium 450 mg by mouth every morning, and 600 mg by mouth daily at bedtime We will continue Invega Sust[place] 156 mg IM administered today. -When necessary Ativan and Haldol for agitation/aggression. -NRT - nicotine patch -SW on board for discharge planning. Encouraged the patient to participate in milieu.
[2021-04-15] MEDS: LORazepam 1 MG TAB PO PRN ×2 (13:28→20:50)
[2021-04-15] MEDS: LITHIUM CARBONATE 300 MG CAP PO SCH (20:49)
[2021-04-16] MEDS: LORATADINE 10 MG TAB PO SCH (08:25)
[2021-04-16] MEDS: LITHIUM CARBONATE ER 450 MG TABLET.ER PO SCH (08:25)
--- NOTE | 2021-04-16 11:30 | P.PN ---
Progress Note - Text Progress Note Date: 04/16/21 Interval History: Patient was seen in the [facility] and was directable to speak with the health technical writer in the office. The patient maintains she is upset that she is admitted and is tearfully asking for discharge. The patient continues to maintain that she did not believe her substance use (methamphetamines) was a "problem" despite the fact that it contributes to her psychotic episodes, lead to her obtaining a guardian, and being unable to care for her kids. The patient states after much discussion that it is a problem. She wishes to go to outpatient treatment for substance abuse and for mental health. The patient is currently denying any suicidal or homicidal ideation, intention, and/or plan. She reports no auditory or visual hallucinations. She denies any paranoia or other delusions. She received invega sustenna 156 mg IM yesterday. She endorses some light-headedness and "foggyness" as side effecs. The patient maintains she does not require a guardian. She was informed that when is psychotic she is absolutely in no mind state to make any appropriate decisions and therefore the guardian being in place appears appropriate. Mental Status Exam: General Appearance: Patient appears to be stated age is alert, directable, and cooperative. Good hygiene and grooming. Behavior: Patient is calmly seated without any agitated behavior. Psychomotor activity slightly elevated. Patient becomes tearful. Speech: Patient's speech is fluent and nonpressured. Normal rate, tone, and v olume today. Mood/Affect: Mood is "I don't need a guardian", affect is labile. Tearful, to calm, to irritable. Suicidality/Homicidality: Patient denies any suicidal or homicidal ideation, intention, and/or plan. Perceptions: Patient denies any auditory or visual hallucinations Though content/process: There is no evidence of any delusional thought content and thought process is linear and goal-directed. Memory and concentration: AOX3, grossly intact for the purposes of this session Judgment and insight: Improving mildly Vital Signs Temp 98.0 F 04/16/21 06:11 Pulse 84 04/16/21 06:11 Resp 14 04/16/21 06:11 BP 100/60 04/16/21 06:11 Pulse Ox 98 04/15/21 06:58 Assessment Schizoaffective disorder, bipolar type Cannabis use disorder Methamphetamine use disorder Borderline Personality Disorder (as per history) Plan: -Patient continues to meet criteria for inpatient psychiatric admission for symptom stabilization and safety. A demand for court hearing has been filed. Patient plans to waive and stipulate court. -Pending safety planning, anticipate discharge tomorrow. We will need to address mental health court proceedings prior to discharge (patient plans to waive and stipulate today). Patient is currently not presenting with any symptoms of active psychosis or suicidal or homicidal ideation, intention, and/or plan. No criteria at this time for continued inpatient admission. -Consider a substance abuse treatment order for the patient. -Medications: Continue lithium 450 mg by mouth every morning, and 600 mg by mouth daily at bedtime We will continue Invega Sustenna 156 mg IM administered today. -[place] level ordered. -When necessary Ativan and Haldol for agitation/aggression. -NRT - nicotine patch -SW on board for discharge planning. Encouraged the patient to participate in milieu.
[2021-04-16] MEDS: LORazepam 1 MG TAB PO PRN ×2 (15:06→22:30)
[2021-04-16] MEDS: LITHIUM CARBONATE 300 MG CAP PO SCH (21:00)
[2021-04-17 03:41] VITALS: BP 88/54; TEMP 97.4
[2021-04-17 06:05] VITALS: PULSE 104; RESP 18
[2021-04-17] MEDS: LITHIUM CARBONATE ER 450 MG TABLET.ER PO SCH (08:00)
[2021-04-17] MEDS: LORATADINE 10 MG TAB PO SCH (08:00)
--- NOTE | 2021-04-17 12:57 | P.DS ---
Providers Date of admission: 04/12/21 22:29 Expected date of discharge: 04/17/21 Attending physician: Yehuda Walker MD Consults: 04/12/21 22:30 Consult Physician Routine Consulting Provider: Teresita Hamilton Consult Reason/Comments: medicla management Do you want consulting provider notified?: Yes Primary care physician: Jocelyn Earl - Discharge Diagnosis(es) (1) Schizoaffective disorder, bipolar type Current Visit: Yes Status: Acute Priority: High (2) Cannabis use disorder, mild, abuse Current Visit: Yes Status: Acute Priority: Medium (3) Methamphetamine abuse Current Visit: Yes Status: Acute Priority: High (4) Borderline personality disorder Current Visit: Yes Status: Acute Priority: Medium (5) Nicotine dependence Current Visit: Yes Status: Acute Priority: Low Hospital Course: Admission HPI: Admission note was completed by Dr. Mcdowell "Mikaela is a 35-year-old female admitted to the psychiatric unit involuntarily. I reviewed the medical record and interviewed the patient. Her manufacturing design engineer from [facility] initiated a Demand for Hearing indicating that she refuses to accept prescribed treatment. The patient was perpllexed as to why the manufacturing design engineer initiated the Demand for hearing. She stated that she's been compliant with her medication, had an appointment with the psychiatrist and has kept her appointments for her Invega injections. She met with the manufacturing design engineer but had missed 2 appointments with the peers user support analyst supervisor. She stated that the peers user support analyst supervisor canceled one of the appointments and did not show for the second appointment. Mikaela arrange to reschedule the appointments for this Wednesday, Wednesday and . The EPS nurse confirmed that she had rescheduled the appointments. Mikaela provided a circumstantial explanation about the peers user support analyst supervisor coming to her house but she was in the home. On admission though her serum lithium level was less than 0.2 and urine drug screen was positive for amphetamines and methamphetamines. She admitted to taking one dose of Adderall given to her by a friend but denied that she had consistently used Adderall. She denied that she had used methamphetamine. She denied other problems or concerns. She denied problems with sleep, appetite or mood. She denied that she has been feeling depressed or having thoughts of or suicide. She denied persistent and uncontrolled anxiety. She denied experiencing elevated mood or sustained irritability. She denied experiencing auditory, visual or olfactory hallucinations, ideas of reference etc." Hospital course: Upon admission to the unit patient was initially minimizing her condition and need for treatment. Patient was however admitted involuntarily as she was previously on a deferral. A demand for hearing was set however patient ended up signing a waive and stip with her employment attorney and consenting to the mental health treatment order. Patient got along well with other patients on the unit and followed unit protocol. Patient was compliant with the medications and denied any side effects throughout hospital course. Patient was started on [lithium 450 mg every morning +600 mg daily at bedtime for mood stabilization. Patient was also administered her monthly dose of Invega Sustenna 156 mg IM on 04/15 and will be due for her next monthly dose on 05/15/21 Patient spoke of his stressors and engaged in therapy both group and individual. Patient was also seen by medical team for history and physical exam. Patient had a lithium level initially below 0.2 admission which improved to 0.9 drawn on 04/16. Throughout the course of the hospitalization patient gradually improved with regards to mood lability, anxiety, sleep and improved in terms of her insight and judgment however these are still chronically poor. On the day of discharge patient denied any suicidal or homicidal ideations intent or plan denied any auditory or visual hallucinations. Patient endorsed wanting to live for her health and her family. The patient denied any access to guns or weapons. Patient denied any paranoia and did not endorse any delusions. Patient does have a significant history of substance abuse and was counseled on abstaining from all substances including alcohol and marijuana. Patient was offered however declined inpatient substance-abuse rehab. Patient elected to do outpatient substance use treatment program through [facility]. Patient was also counseled on the medications and need for regular compliance and was encouraged to follow-up with their outpatient appointment for mental health and also for primary care. Prior to discharge a family meeting will be arranged by manager social media to answer any questions and ensure safety upon discharge. Mental status exam: General Appearance: Patient appears to be thin, stated age is alert, pleasant, and cooperative. Patient is in no acute distress and has improved hygiene and grooming Behavior: Patient is calmly seated without any agitated behavior. Speech: Patient's speech is fluent and nonpressured. Mood/Affect: Patient reports their mood is "better", affect is congruent Suicidality/Homicidality: Patient denies having any suicidal or homicidal ideation intent or plan. Perceptions: Patient denies any auditory or visual hallucinations. Though content/process: There is no evidence of any delusional thought content and thought process is linear and goal-directed. Memory and concentration: AOX3, grossly intact for the purposes of this session. Can spell "WORLD" backwards correctly. Judgment and insight: chronically poor, however has improved with guarded prognosis Impression: Schizoaffective disorder, bipolar type Cannabis use disorder Methamphetamine use disorder Borderline personality disorder nicotine dependence Plan: -Continue with discharge today as patient has improved and stabilized psychiatrically and is not currently an imminent threat to herself and/or others. Patient will remain at chronically elevated risk for harm to self and/or others due to her impulsivity and polysubstance abuse. -Continue medications: Continue with lithium 450 mg by mouth every morning +600 mg daily at bedtime for mood stabilization. Patient received Invega Sustenna monthly dose of 156 mg IM on 04/15 and will be due for next monthly injection on 05/15/21. -Patient was counseled on the need for medication compliance and appropriate follow-up at mental health and also primary care for medical issues. Patient verbalized understanding and agreed. -Social work to arrange for and conduct family meeting to ensure safety upon discharge and answer any questions/concerns. Social work also to arrange for patients follow up appointments with [facility] for psychiatric care along with follow up with primary care provider. -Patient counseled on abstaining from recreational drugs and marijuana and alcohol. Was informed/educated on the adverse effects on their physical and mental health. Patient verbally agreed and understood. Patient was offered substance abuse treatment however declined at this time. -Patient was instructed to return to the hospital or seek immediate medical care if their psychiatric or medical symptoms do worsen or reoccur. Allergies Allergy/AdvReac Type Severity Reaction Status Date / Time No Known Allergies Allergy Verified 04/12/21 18:26 Laboratory Results WBC 8.1 k/uL (3.8-10.6) 04/13/21 12:46 RBC 4.25 m/uL (3.80-5.40) 04/13/21 12:46 Hgb 12.6 gm/dL (11.4-16.0) 04/13/21 12:46 Hct 38.5 % (34.0-46.0) 04/13/21 12:46 MCV 90.6 fL (80.0-100.0) 04/13/21 12:46 MCH 29.5 pg (25.0-35.0) 04/13/21 12:46 MCHC 32.6 g/dL (31.0-37.0) 04/13/21 12:46 RDW 13.6 % (11.5-15.5) 04/13/21 12:46 Plt Count 338 k/uL (150-450) 04/13/21 12:46 MPV 7.3 04/13/21 12:46 Neutrophils % 70 % 04/13/21 12:46 Lymphocytes % 22 % 04/13/21 12:46 Monocytes % 4 % 04/13/21 12:46 Eosinophils % 2 % 04/13/21 12:46 Basophils % 1 % 04/13/21 12:46 Neutrophils # 5.7 k/uL (1.3-7.7) 04/13/21 12:46 Lymphocytes # 1.8 k/uL (1.0-4.8) 04/13/21 12:46 Monocytes # 0.3 k/uL (0-1.0) 04/13/21 12:46 Eosinophils # 0.1 k/uL (0-0.7) 04/13/21 12:46 Basophils # 0.1 k/uL (0-0.2) 04/13/21 12:46 Sodium 138 mmol/L (137-145) 04/13/21 12:46 Potassium 4.1 mmol/L (3.5-5.1) 04/13/21 12:46 Chloride 103 mmol/L (98-107) 04/13/21 12:46 Carbon Dioxide 22 mmol/L (22-30) 04/13/21 12:46 Anion Gap 13 mmol/L 04/13/21 12:46 BUN 13 mg/dL (7-17) 04/13/21 12:46 Creatinine 0.77 mg/dL (0.52-1.04) 04/13/21 12:46 Est GFR (CKD-EPI)AfAm >90 (>60 ml/min/1.73 sqM) 04/13/21 12:46 Est GFR (CKD-EPI)NonAf >90 (>60 ml/min/1.73 sqM) 04/13/21 12:46 Glucose 94 mg/dL (74-99) 04/13/21 12:[address] Glu mg/dL 94 04/13/21 12:46 Hemoglobin A1c 4.9 % (4.0-6.0) 04/13/21 12:46 Calcium 10.1 mg/dL (8.4-10.2) 04/13/21 12:46 Total Bilirubin 0.6 mg/dL (0.2-1.3) 04/13/21 12:46 AST 27 U/L (14-36) 04/13/21 12:46 ALT 9 U/L (4-34) 04/13/21 12:46 Alkaline Phosphatase 58 U/L (38-126) 04/13/21 12:46 Total Protein 7.1 g/dL (6.3-8.2) 04/13/21 12:46 Albumin 4.5 g/dL (3.5-5.0) 04/13/21 12:46 Triglycerides 60.40 mg/dL (0.00-149.00) 04/13/21 12:46 Cholesterol 192.00 mg/dL (0.00-200.00) 04/13/21 12:46 LDL Cholesterol, Calc 97.3 mg/dL (0.0-131.0) 04/13/21 12:46 VLDL Cholesterol, Calc 12.08 mg/dL (5.00-40.00) 04/13/21 12:46 HDL Cholesterol 82.60 mg/dL (40.00-60.00) H 04/13/21 12:46 Cholesterol/HDL Ratio 2.32 Ratio 04/13/21 12:46 TSH 1.580 mIU/L (0.465-4.680) 04/13/21 12:46 Urine HCG, Qual Not Detected (Not Detectd) 04/13/21 12:00 Urine Opiates Screen Not Detected (NotDetected) 04/12/21 17:22 Ur Oxycodone Screen Not Detected (NotDetected) 04/12/21 17:22 Urine Methadone Screen Not Detected (NotDetected) 04/12/21 17:22 Ur Propoxyphene Screen Not Detected (NotDetected) 04/12/21 17:22 Ur Barbiturates Screen Not Detected (NotDetected) 04/12/21 17:22 U Tricyclic Antidepress Not Detected (NotDetected) 04/12/21 17:22 Ur Phencyclidine Scrn Not Detected (NotDetected) 04/12/21 17:22 Ur Amphetamines Screen Detected (NotDetected) H 04/12/21 17:22 U Methamphetamines Scrn Detected (NotDetected) H 04/12/21 17:22 U Benzodiazepines Scrn Not Detected (NotDetected) 04/12/21 17:22 [place] 0.9 mmol/L 04/16/21 11:47 Urine Cocaine Screen Not Detected (NotDetected) 04/12/21 17:22 U Marijuana (THC) Screen Not Detected (NotDetected) 04/12/21 17:22 Coronavirus (PCR) Not Detected (Not Detectd) 04/12/21 21:50 Vital Signs Temp 97.4 F L 04/17/21 06:03 Pulse 104 H 04/17/21 06:03 Resp 18 04/17/21 06:03 BP 88/54 04/17/21 06:03 Pulse Ox 97 04/17/21 06:03 Patient Condition at Discharge: Stable Plan - Discharge Summary Discharge Rx Participant: No New Discharge Prescriptions: New Acetaminophen Tab [Tylenol] 650 mg PO Q4HR PRN tab PRN Reason: Pain/Discomfort Continue Loratadine [Claritin] 10 mg PO DAILY [place] Carbonate 600 mg PO HS 30 Days cap [place] Carbonate ER [Lithobid] 450 mg PO DAILY 30 Days tab Ibuprofen [Motrin] 600 mg PO Q8HR PRN #21 tab PRN Reason: Pain Changed Paliperidone IM [Invega Sustenna] 156 mg IM Q30D #1 ml Discharge Medication List Ibuprofen [Motrin] 600 mg PO Q8HR PRN #21 tab 03/17/21 [Rx] Loratadine [Claritin] 10 mg PO DAILY 04/12/21 [History] Acetaminophen Tab [Tylenol] 650 mg PO Q4HR PRN tab 04/17/21 [Rx] [place] Carbonate 600 mg PO HS 30 Days cap 04/17/21 [Rx] [place] Carbonate ER [Lithobid] 450 mg PO DAILY 30 Days tab 04/17/21 [Rx] Paliperidone IM [Invega Sustenna] 156 mg IM Q30D #1 ml 04/17/21 [Rx] Follow up Appointment(s)/Referral(s): [facility] [Outside] - 04/17/21 12:00 pm (04/17 @ 12:00 w? Brigid 04/21 @ 14:15 w/ Cristhian 04/22 @ 4:30-5:00pm with Dr Serna 04/23 @ 10:00 w/ Otilia 04/25 @ 15:15 w/ Brigid ) Jocelyn Earl MD [Primary Care Provider] - 1-2 days Patient Instructions/Handouts: Brief Psychotic Disorder (DC), Schizoaffective Disorder (DC), Methamphetamine Abuse (DC) Activity/Diet/Wound Care/Special Instructions: Activity and diet as tolerated. Avoid the use of street drugs and alcohol. Take all medications as prescribed. When you are in need of refills on your medicat ions please contact your medical provider and/or outpatient psychiatrist to have this done. Please go to scheduled outpatient appointment for aftercare treatment. If symptoms return or become worse, call the crisis line at and/or go to the nearest emergency room for evaluation. Discharge Disposition: HOME SELF-CARE
== END 2021-04-17 12:20 | disposition home or self-care (01) | DRG 885 ==
LOC: EC 14:55 → 3MHU 22:29
PROVIDERS: ADMIT Psychiatry & Neurology Psychiatry; ATTEND Psychiatry & Neurology Psychiatry
DX: F25.0 Schizoaffective disorder, bipolar type (principal); F12.10 Cannabis abuse, uncomplicated; F15.10 Other stimulant abuse, uncomplicated; F17.200 Nicotine dependence, unspecified, uncomplicated; F41.9 Anxiety disorder, unspecified; F60.3 Borderline personality disorder; Z56.0 Unemployment, unspecified; Z91.19 Patient's noncompliance with other medical treatment and regimen; Z20.822 Contact with and (suspected) exposure to COVID-19
CPT/HCPCS: 80053; 80061; 80178; 80306; 81025; 83036; 84443; 85025; 87635; 99285

== ENCOUNTER → 2021-05-08 | Outpatient (CLI) | payer OTHER ==
[2021-05-08 16:26] LABS: African American GFR (CKD) 109.9 (60.0-200.0); Albumin 4.6 g/dL (3.8-4.9); Anion Gap 13.3 mmol/L (4.00-12.00); BUN/Creat Ratio 14.13 Ratio (12.00-20.00); Blood Urea Nitrogen 11.3 mg/dL (9.0-27.0); Calcium 9.7 mg/dL (8.7-10.3); Carbon Dioxide 23.7 mmol/L (21.6-31.8); Non-African American GFR(CKD) 94.8 (60.0-200.0); Potassium 4.1 mmol/L (3.5-5.5); T4, Free (Free Thyroxine) 1.48 ng/dL (0.800-1.800)
[2021-05-08 19:45] LABS: Lithium 0.7 mmol/L (0.50-1.20)
== END | disposition home or self-care (01) ==
LOC: LABWHC1 07:55
PROVIDERS: ATTEND Psychiatry & Neurology Psychiatry
DX: Z79.899 Other long term (current) drug therapy (principal)
CPT/HCPCS: 36415; 80069; 80178; 83036; 84439; 84443

== ENCOUNTER 2021-10-07 13:32 | Inpatient (IN) | payer MEDICAID, OTHER ==
--- NOTE | 2021-10-07 14:22 | ED ---
Psych HPI - General Source: patient, RN notes reviewed Mode of arrival: ambulatory Limitations: no limitations <Wilmar Carney - Last Filed: 10/07/21 14:18> <Indra Blackman - Last Filed: 10/07/21 16:48> - General Chief Complaint: Psychiatric Symptoms Stated Complaint: Mental health Time Seen by Provider: 10/07/21 14:03 - History of Present Illness Initial Comments: 36-year-old female presents emergency Department with chief complaint of needing psychiatric evaluation. Patient is brought here with police and petition from [facility]. She states that she was sick 3 weeks ago with covid 19 so she missed her appointment so they did visit her house. Patient states she was seen by her [facility] worker yesterday told that he was fine but please started today. petition states that she sent text messages saying she was going to harm herself. She denies being suicidal denies any homicidal denies any drug or alcohol abuse. (Wilmar Carney) - Related Data Home Medications Medication Instructions Recorded Confirmed Acetaminophen Tab [Tylenol Tab] 1,000 mg PO Q6H PRN 10/07/21 10/07/21 Levothyroxine Sodium [Synthroid] 50 mcg PO DAILY 10/07/21 10/07/21 OLANZapine [ZyPREXA] 5 mg PO HS 10/07/21 10/07/21 Previous Rx's Medication Instructions Recorded [place] Carbonate 600 mg PO HS 30 Days cap 04/17/21 Allergies Allergy/AdvReac Type Severity Reaction Status Date / Time No Known Allergies Allergy Verified 10/07/21 15:53 Review of Systems ROS Other: All systems not noted in ROS Statement are negative. <Wilmar Carney - Last Filed: 10/07/21 14:18> ROS Other: All systems not noted in ROS Statement are negative. <Indra Blackman - Last Filed: 10/07/21 16:48> ROS Statement: Those systems with pertinent positive or pertinent negative responses have been documented in the HPI. Past Medical History Past Medical History: No Reported History History of Any Multi-Drug Resistant Organisms: None Reported Past Surgical History: No Surgical Hx Reported Past Psychological History: Anxiety, Depression Smoking Status: Unknown if ever smoked Past Alcohol Use History: None Reported Past Drug Use History: Marijuana - Past Family History Father Family Medical History: COPD <Wilmar Carney - Last Filed: 10/07/21 14:18> General Exam Limitations: no limitations General appearance: alert, in no apparent distress Head exam: Present: atraumatic, normocephalic, normal inspection Eye exam: Present: normal appearance, PERRL, EOMI. Absent: scleral icterus, conjunctival injection, periorbital swelling ENT exam: Present: normal exam, normal oropharynx, mucous membranes moist Neck exam: Present: normal inspection, full ROM. Absent: tenderness, meningismus, lymphadenopathy Respiratory exam: Present: normal lung sounds bilaterally. Absent: respiratory distress, wheezes, rales, rhonchi, stridor Cardiovascular Exam: Present: normal rhythm, tachycardia, normal heart sounds. Absent: systolic murmur, diastolic murmur, rubs, gallop, clicks GI/Abdominal exam: Present: soft, normal bowel sounds. Absent: distended, tenderness, guarding, rebound, rigid Neurological exam: Present: alert Psychiatric exam: Present: anxious Skin exam: Present: warm, dry, intact, normal color. Absent: rash <Wilmar Carney - Last Filed: 10/07/21 14:18> Course Vital Signs 10/07/21 13:35 Temperature 98.1 F Pulse Rate 122 H Respiratory 18 Rate Blood Pressure 179/83 O2 Sat by Pulse 98 Oximetry Medical Decision Making <Indra Blackman - Last Filed: 10/07/21 16:48> - Medical Decision Making The patient was evaluated by the EPS service and will be admitted for inpatient evaluation and treatment (Indra Blackman) Disposition <Wilmar Carney - Last Filed: 10/07/21 14:18> Decision Date: 10/07/21 Decision Time: 16:45 <Indra Blackman - Last Filed: 10/07/21 16:48> Clinical Impression: Acute psychosis Disposition: TRANSFER TO PSYCH HOSP/UNIT Condition: Fair Referrals: None,Stated [REFERRING] - 1-2 days
[2021-10-07] MEDS ORDERED: LORazepam 1 MG TAB PO STA (16:14)
[2021-10-07 18:58] LABS: Amphetamine Screen,Urine Not Detected (NotDetected); Barbiturate Screen,Urine Not Detected (NotDetected); Benzodiazepines Screen,Urine Not Detected (NotDetected); Cocaine Screen,Urine Not Detected (NotDetected); Methadone Screen, Urine Not Detected (NotDetected); Opiate Screen,Urine Not Detected (NotDetected); Oxycodone Screen, Urine Not Detected (NotDetected); Phencyclidine Screen,Urine Not Detected (NotDetected); Tricyclic Antidepressant,Urine Not Detected (NotDetected); Urn Cannabinoid Scrn Not Detected (NotDetected)
[2021-10-07] MEDS ORDERED: ACETAMINOPHEN TAB 500 MG TAB PO PRN (20:19)
[2021-10-07] MEDS ORDERED: HALOPERIDOL LACTATE 5 MG/ML 1 ML VIAL IM PRN (20:20)
[2021-10-07] MEDS ORDERED: MAGNESIUM HYDROXIDE 2,400 MG/10 ML CUP PO PRN (20:20)
[2021-10-07] MEDS ORDERED: ACETAMINOPHEN TAB 325 MG TAB PO PRN (20:20)
[2021-10-07] MEDS ORDERED: MAG HYDROX/AL HYDROX/SIMETH 30 ML CUP PO PRN (20:20)
[2021-10-07] MEDS ORDERED: LORazepam 2 MG/ML INJ IM PRN (20:31)
[2021-10-07] MEDS ORDERED: OLANZapine 5 MG TAB PO SCH (21:00)
[2021-10-07] MEDS: LITHIUM CARBONATE 300 MG CAP PO SCH (22:03)
[2021-10-08] MEDS: LEVOTHYROXINE 50 MCG TAB PO SCH (08:06)
[2021-10-08] MEDS: LORazepam 1 MG TAB PO PRN ×2 (08:08→21:31)
[2021-10-08 08:48] LABS: Basophils # (A) 0.1 k/uL (0-0.2); Basophils % (A) 1 %; Eosinophils # (A) 0.3 k/uL (0-0.7); Eosinophils % (A) 3 %; HCT 45.1 % (34.0-46.0); Lymphocytes # (A) 2.6 k/uL (1.0-4.8); Lymphocytes % (A) 32 %; MCH 28.8 pg (25.0-35.0); MCHC 31.1 g/dL (31.0-37.0); MCV 92.5 fL (80.0-100.0); Mean Platelet Volume 7.2; Monocytes # (A) 0.4 k/uL (0-1.0); Monocytes % (A) 5 %; Neutrophils # (A) 4.5 k/uL (1.3-7.7); Neutrophils % (A) 56 %; Platelet Count 473 k/uL (150-450); RBC 4.88 m/uL (3.80-5.40); WBC 7.9 k/uL (3.8-10.6)
[2021-10-08 09:06] LABS: ALT 9 U/L (4-34); AST 23 U/L (14-36); African American GFR (CKD) >90 (>60 ml/min/1.73 sqM); Albumin 4.2 g/dL (3.5-5.0); Alkaline Phosphatase 44 U/L (38-126); Anion Gap 6 mmol/L; Blood Urea Nitrogen 12 mg/dL (7-17); Calcium 9.8 mg/dL (8.4-10.2); Carbon Dioxide 26 mmol/L (22-30); Chloride 106 mmol/L (98-107); Glucose 90 mg/dL (74-99); Non-African American GFR(CKD) >90 (>60 ml/min/1.73 sqM); Potassium 4.4 mmol/L (3.5-5.1); Sodium 138 mmol/L (137-145); Total Bilirubin 0.9 mg/dL (0.2-1.3); Total Protein 7.1 g/dL (6.3-8.2)
[2021-10-08 09:46] LABS: Lithium 0.6 mmol/L
[2021-10-08] MEDS ORDERED: flUPHENAZine 2.5 MG/ML (MDV) 10 ML VIAL IM PRN (10:09)
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
--- NOTE | 2021-10-08 10:18 | P.CONS ---
History of Present Illness - Reason for Consult Medical clearance - History of Present Illness Pleasant 36-year-old female came in for acute psychosis patient has a pressured speech patient has tangentiality patient has multiple other complaints. Patient believes her blood pressure can use to be high since she had preeclampsia with her child patient believes she still has proteinuria. Patient is tachycardic patient is anxious. Patient has multiple other complaints. Patient also complaining of nasal congestion which she does have. REVIEW OF SYSTEMS: As mentioned in the HPI multiple in significant complaints PHYSICAL EXAMINATION: GENERAL: The patient is alert and oriented x3, not in any acute distress. Well developed, well nourished. HEENT: Pupils are round and equally reacting to light. EOMI. No scleral icterus. No conjunctival pallor. Normocephalic, atraumatic. No pharyngeal erythema. No thyromegaly patient does have stuffy nose. CARDIOVASCULAR: S1 and S2 present. No murmurs, rubs, or gallops. PULMONARY: Chest is clear to auscultation, no wheezing or crackles. ABDOMEN: Soft, nontender, nondistended, normoactive bowel sounds. No palpable organomegaly. MUSCULOSKELETAL: No joint swelling or deformity. EXTREMITIES: No cyanosis, clubbing, or pedal edema. NEUROLOGICAL: Gross neurological examination did not reveal any focal deficits. SKIN: No rashes. Assessment and plan -ALLERGIC rhinitis will use Flonase -Tachycardia secondary to acute psychosis TSH level within normal limits Hypothyroidism: Continue with levofloxacin - psychosis management as per primary service Past Medical History Past Medical History: No Reported History History of Any Multi-Drug Resistant Organisms: None Reported Past Surgical History: No Surgical Hx Reported Past Anesthesia/Blood Transfusion Reactions: No Reported Reaction Past Psychological History: Anxiety, Depression, Schizoaffective Disorder Smoking Status: Unknown if ever smoked Past Alcohol Use History: None Reported Past Drug Use History: Marijuana - Past Family History Father Family Medical History: COPD Medications and Allergies Home Medications Medication Instructions Recorded Confirmed Type Makanda Carbonate 600 mg PO HS 30 Days cap 04/17/21 10/07/21 Rx Acetaminophen Tab [Tylenol Tab] 1,000 mg PO Q6H PRN 10/07/21 10/07/21 History Levothyroxine Sodium [Synthroid] 50 mcg PO DAILY 10/07/21 10/07/21 History OLANZapine [ZyPREXA] 5 mg PO HS 10/07/21 10/07/21 History Allergies Allergy/AdvReac Type Severity Reaction Status Date / Time No Known Allergies Allergy Verified 10/07/21 15:53 Physical Exam Vitals: Vital Signs Temp Pulse Pulse Pulse Resp BP BP 10/08/21 10:08 75 10/08/21 08:09 97.8 F 125 H 16 121/97 10/07/21 20:14 97.9 F 107 H 20 144/98 10/07/21 13:35 98.1 F 122 H 18 179/83 Pulse Ox 10/08/21 10:08 10/08/21 08:09 98 10/07/21 20:14 10/07/21 13:35 98 Intake and Output 10/07/21 10/08/21 10/08/21 22:59 06:59 14:59 Other: Weight 61.235 kg Results CBC & Chem 7: 10/08/21 08:10 10/08/21 08:10 Labs: Abnormal Lab Results - Last 24 Hours (Table) 10/07/21 10/08/21 Range/Units 18:43 08:10 Plt Count 473 H (150-450) k/uL U Methamphetamines Scrn Detected H (NotDetected)
[2021-10-08] MEDS: FLUTICASONE 50MCG/SPRAY NASAL 16GM EA NOSTRIL SCH (11:03)
[2021-10-08 15:10] LABS: Chol/HDL Ratio 2.41 Ratio; LDL Cholesterol,Calculated 85.6 mg/dL (0.0-131.0); VLDL Calculation 16.12 mg/dL (5.00-40.00)
[2021-10-08] MEDS: MELATONIN 3 MG TABLET PO SCH (21:29)
[2021-10-08] MEDS: LITHIUM CARBONATE 300 MG CAP PO SCH (21:29)
[2021-10-09] MEDS: LEVOTHYROXINE 50 MCG TAB PO SCH (06:35)
[2021-10-09] MEDS: FLUTICASONE 50MCG/SPRAY NASAL 16GM EA NOSTRIL SCH (08:12)
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
[2021-10-09] MEDS: LITHIUM CARBONATE 300 MG CAP PO SCH (22:01)
[2021-10-09] MEDS: MELATONIN 3 MG TABLET PO SCH (22:02)
[2021-10-10] MEDS: LEVOTHYROXINE 50 MCG TAB PO SCH (07:19)
[2021-10-10] MEDS: FLUTICASONE 50MCG/SPRAY NASAL 16GM EA NOSTRIL SCH (08:21)
[2021-10-10] MEDS: LORazepam 1 MG TAB PO PRN (15:01)
--- NOTE | 2021-10-10 15:33 | P.PN ---
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 I'm concerned about my daily routine in my life in general I would like to be discharged Objective data: Reveals a neatly dressed and groomed female was friendly and cooperative She is alert and oriented to time place and person Speech was somewhat pressured Thought processes seem to be goal-directed and sequential and if her previous history is not available seems logical unconvincing Patient denies any suicidal or homicidal ideations Patient denies any substance use problems including not using any amphetamines or cannabis he wouldn't go drug screen was positive Patient's formal and operational judgment are impaired Patient's insight into her problem is poor Plan: The patient currently continues to meet the criteria for inpatient psychiatric hospitalization for stabilization and safety Patient is currently under an active court order Patient is currently on Prolixin, melatonin, trazodone and lithium as started by Dr. Madera Continue current care and support Viktor Jarrell M.D. 10/10/2021 Objective - Vital Signs Vital signs: Vital Signs Temp 97.7 F 10/09/21 06:43 Pulse 76 10/09/21 06:43 Resp 16 10/09/21 06:43 BP 121/68 10/09/21 06:43 Pulse Ox 98 10/08/21 08:09 - Labs CBC & Chem 7: 10/08/21 08:10 10/08/21 08:10
[2021-10-10] MEDS: LITHIUM CARBONATE 300 MG CAP PO SCH (21:01)
[2021-10-10] MEDS: MELATONIN 3 MG TABLET PO SCH (21:01)
[2021-10-11] MEDS: LEVOTHYROXINE 50 MCG TAB PO SCH (06:56)
[2021-10-11] MEDS: FLUTICASONE 50MCG/SPRAY NASAL 16GM EA NOSTRIL SCH (08:56)
[2021-10-11] MEDS: LORazepam 1 MG TAB PO PRN ×2 (10:15→20:40)
[2021-10-11] MEDS: haloperidoL 5 MG TAB PO PRN (10:29)
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
[2021-10-11] MEDS: traZODone HCL 50 MG TAB PO PRN (20:40)
[2021-10-11] MEDS: MELATONIN 3 MG TABLET PO SCH (20:40)
[2021-10-11] MEDS: LITHIUM CARBONATE 300 MG CAP PO SCH (20:40)
[2021-10-12] MEDS: LEVOTHYROXINE 50 MCG TAB PO SCH (06:26)
[2021-10-12 07:04] VITALS: RESP 14
[2021-10-12] MEDS: FLUTICASONE 50MCG/SPRAY NASAL 16GM EA NOSTRIL SCH (08:51)
--- NOTE | 2021-10-12 09:35 | P.PN ---
Subjective Progress Note Date: 10/12/21 Principal diagnosis: Schizoaffective disorder bipolar type Psychotic disorder unspecified Methamphetamine use disorder Cannabis use disorder unspecified Subjective data: I feel a little bit better today When patient was advised that we need to have a family meeting with her since she'll be going back to him and clarify some of the specifics patient was agreeable to do so and immediately wanted to set up the time and date Discussed that the social director will have to contact the has been to set up a time that's mutually agreeable Objective data: Reveals a neatly dressed and groomed female was friendly and cooperative She is alert and oriented to time place and person Speech was somewhat pressured Thought processes seem to be goal-directed and sequential Patient did not show any agitation or flight of ideas at this time and was calm and was able to interact appropriately Insight into her problem is still questionable Plan: We'll discuss with the staff regarding setting up a family meeting to address the controversies and clarify patient's account The patient currently continues to meet the criteria for inpatient psychiatric hospitalization for stabilization and safety Patient is currently under an active court order Patient is currently on Prolixin, melatonin, trazodone and lithium as started by Dr. Madera Continue current care and support Viktor Jarrell M.D. 10/12/2021 Objective - Vital Signs Vital signs: Vital Signs Temp 97.9 F 10/12/21 06:30 Pulse 75 10/12/21 06:30 Resp 14 10/12/21 06:30 BP 110/60 10/12/21 06:30 Pulse Ox 98 10/08/21 08:09 Intake & Output 10/11/21 10/12/21 10/12/21 18:59 06:59 18:59 Weight 59.1 kg - Labs CBC & Chem 7: 10/08/21 08:10 10/08/21 08:10
[2021-10-12] MEDS: LORazepam 1 MG TAB PO PRN (12:41)
[2021-10-12] MEDS: haloperidoL 5 MG TAB PO PRN (17:54)
[2021-10-12] MEDS: LITHIUM CARBONATE 300 MG CAP PO SCH (21:18)
[2021-10-12] MEDS: MELATONIN 3 MG TABLET PO SCH (21:18)
[2021-10-13] MEDS: LEVOTHYROXINE 50 MCG TAB PO SCH (06:19)
[2021-10-13] MEDS: FLUTICASONE 50MCG/SPRAY NASAL 16GM EA NOSTRIL SCH (08:56)
[2021-10-13] MEDS: LORazepam 1 MG TAB PO PRN (10:15)
[2021-10-13] MEDS ORDERED: fluPHENAZine DECANOATE 25 MG/ML 5ML MDV IM ONE (11:48)
[2021-10-13] MEDS ORDERED: hydrOXYzine pamoate 25 MG CAP PO PRN (11:49)
--- NOTE | 2021-10-13 11:55 | P.PN ---
Progress Note - Text Progress Note Date: 10/13/21 Interval History: Patient was seen wandering the hallways and was directable and agreeable to sp eak with senior technical writer in the office. Patient appears to be more directable today with conversation and senior technical writer. She was also more appropriate. She claims that she is thinking clearer now and reflected back on why she came into the hospital. She continues to have fairly superficial insight and judgment. We spoke about medication compliance and patient was agreeable to take the Prolixin D injection today. She states that her mood is "fine" however does claim that she does feel stressed and has been having panic symptoms during the day and anxiety. She was given agreeable to try Vistaril. She states that she has been sleeping fairly well throughout the night's except for last night. She states that she has been going to some groups. She claims that she does not know what happened with the text messages before coming into the hospital however was not endorsing much paranoia today.. At this time patient denies any suicidal or homical ideations, intent or plan. Patient denies any auditory, visual hallucinations and denies any paranoia or delusions. Patient denies any side effects from the medications and has been compliant with meds. Mental Status Exam: General Appearance: Patient appears to be thin, older than stated age is alert, more directable today and appropriate. Patient appears to have improving hygiene and grooming. Behavior: Patient is seated without any agitated behavior. Not paranoid today. Speech: Patient's speech is rapid however is clear. Mood/Affect: Patient reports their mood is "anxious", affect is congruent and constricted. Suicidality/Homicidality: Patient denies having any homicidal ideation intent or plan. Denies any suicidal ideations intent or plan Perceptions: Patient denies any visual hallucinations and denies any auditory hallucinations Though content/process: Rambling, more goal oriented and appropriate. Not endorsing paranoid today. Memory and concentration: AOX3, grossly intact for the purposes of this session Judgment and insight: Chronically poor, Improving Assessment Schizoaffective disorder bipolar type methamphetamine use disorder History of cannabis abuse Plan: -Patient continues to meet criteria for inpatient psychiatric admission for symptom stabilization and safety. Patient has signed medication consent and was placed in patient's chart. -Medications: Continue with by mouth Prolixin 3 mg twice a day for mood s tabilization/psychosis. Will give Prolixin D 25 mg IM today to ensure compliance. Trazodone 50 mg daily at bedtime when necessary for insomnia. Increase melatonin to 10 mg daily at bedtime for sleep. lithium 600 mg qhs for mood stabilization -When necessary Ativan and Haldol for agitation/aggression. -NRT - nicotine patch -SW on board for discharge planning. Encouraged the patient to participate in milieu. She is currently on active treatment order. Likely discharge home tomorrow after receiving long-acting injection.
[2021-10-13] MEDS: haloperidoL 5 MG TAB PO PRN (13:47)
[2021-10-13] MEDS ORDERED: MELATONIN 5 MG TABLET PO SCH (21:00)
[2021-10-13] MEDS: LITHIUM CARBONATE 300 MG CAP PO SCH (21:41)
[2021-10-13] MEDS: traZODone HCL 50 MG TAB PO PRN (21:43)
[2021-10-14] MEDS: LEVOTHYROXINE 50 MCG TAB PO SCH (06:27)
[2021-10-14 07:11] VITALS: BP 128/60; PULSE 80; TEMP 99.1
[2021-10-14] MEDS: FLUTICASONE 50MCG/SPRAY NASAL 16GM EA NOSTRIL SCH (07:55)
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
[2021-10-14] MEDS: LORazepam 1 MG TAB PO PRN (12:46)
== END 2021-10-14 14:27 | disposition home or self-care (01) | DRG 885 ==
LOC: EC 13:32 → 3MHU 19:10
PROVIDERS: ADMIT Psychiatry & Neurology Psychiatry; ATTEND Psychiatry & Neurology Psychiatry
DX: F25.0 Schizoaffective disorder, bipolar type (principal); E03.9 Hypothyroidism, unspecified; F12.10 Cannabis abuse, uncomplicated; F15.10 Other stimulant abuse, uncomplicated; F17.210 Nicotine dependence, cigarettes, uncomplicated; F41.9 Anxiety disorder, unspecified; G47.00 Insomnia, unspecified; J30.9 Allergic rhinitis, unspecified; Z79.890 Hormone replacement therapy; Z82.5 Family history of asthma and other chronic lower respiratory diseases; Z79.899 Other long term (current) drug therapy; Z63.5 Disruption of family by separation and divorce; Z20.822 Contact with and (suspected) exposure to COVID-19; R00.0 Tachycardia, unspecified
CPT/HCPCS: 80053; 80061; 80178; 80306; 82075; 83036; 84443; 85025; 87635; 99285

== ENCOUNTER 2024-10-12 19:57 | Inpatient (IN) | payer MEDICAID, OTHER ==
--- NOTE | 2024-10-12 22:15 | ED ---
General Adult HPI - General Source: patient, RN notes reviewed Mode of arrival: ambulatory Limitations: no limitations <Rosa Cr - Last Filed: 10/12/24 23:42> <Jesus Pascual - Last Filed: 10/14/24 17:11> - General Chief complaint: Psychiatric Symptoms Stated complaint: Pick-Up Order Time Seen by Provider: 10/12/24 20:36 - History of Present Illness Initial comments: 39-year-old female here for mental health evaluation. Patient was petitioned for mental health evaluation. Patient does not believe that she has a problem. According to the petition the patient is not taking care of herself or her home. She does report a mental health admission in the past but declines any mental health history. She denies SI, HI, hallucinations. (Rosa Cr) - Related Data Home Medications Medication Instructions Recorded Confirmed Acetaminophen Tab [Tylenol] 1,000 mg PO Q6H PRN 10/07/21 10/07/21 Levothyroxine Sodium [Synthroid] 50 mcg PO DAILY 10/07/21 10/07/21 Previous Rx's Medication Instructions Recorded Fluticasone Nasal [place] [Flonase 2 spray EA NOSTRIL DAILY #1 gm 10/14/21 Nasal [place]] [place] Carbonate 600 mg PO HS 30 Days cap 10/14/21 Melatonin 10 mg PO HS 30 Days tablet 10/14/21 fluPHENAZine [Prolixin] 3 mg PO BID 3 Days tab 10/14/21 fluPHENAZine decanoate [Prolixin 25 mg IM [id number] #1 each 10/14/21 Decanoate] hydrOXYzine pamoate [Vistaril] 25 mg PO BID PRN 30 Days cap 10/14/21 traZODone HCL [Desyrel] 50 mg PO HS PRN 30 Days tab 10/14/21 Allergies Allergy/AdvReac Type Severity Reaction Status Date / Time No Known Allergies Allergy Verified 10/12/24 20:18 Review of Systems ROS Other: All systems not noted in ROS Statement are negative. <Rosa Cr - Last Filed: 10/12/24 23:42> ROS Other: All systems not noted in ROS Statement are negative. <Jesus Pascual - Last Filed: 10/14/24 17:11> ROS Statement: Those systems with pertinent positive or pertinent negative responses have been documented in the HPI. Past Medical History Past Medical History: No Reported History History of Any Multi-Drug Resistant Organisms: None Reported Past Surgical History: No Surgical Hx Reported Past Anesthesia/Blood Transfusion Reactions: No Reported Reaction Past Psychological History: Anxiety, Depression, Schizoaffective Disorder Smoking Status: Unknown if ever smoked Past Alcohol Use History: None Reported Past Drug Use History: Marijuana - Past Family History Father Family Medical History: COPD <Rosa Cr - Last Filed: 10/12/24 23:42> General Exam Limitations: no limitations <Rosa Cr - Last Filed: 10/12/24 23:42> Course Vital Signs 10/12/24 20:06 Temperature 98 F Pulse Rate 108 H Respiratory 17 Rate Blood Pressure 101/77 O2 Sat by Pulse 98 Oximetry Medical Decision Making <Rosa Cr - Last Filed: 10/12/24 23:42> - Lab Data Result diagrams: 10/14/24 00:26 10/14/24 00:26 <Jesus Pascual - Last Filed: 10/14/24 17:11> - Medical Decision Making Was pt. sent in by a medical professional or institution ([facility], RELIEF MATE, urgent care, hospital, or senior care...) When possible be specific @ -[No] Did you speak to anyone other than the patient for history (EMS, parent, family, police, friend...)? What history was obtained from this source @ -[No] Did you review nursing and triage notes (agree or disagree)? Why? @ -[I reviewed and agree with nursing and triage notes] Were old charts reviewed (outside hosp., previous admission, EMS record, old EKG, old radiological studies, urgent care reports/EKG's, senior care records)? Report findings @ -[No old charts were reviewed] Differential Diagnosis (chest pain, altered mental status, abdominal pain women, abdominal pain men, vaginal bleeding, weakness, fever, dyspnea, syncope, headache, dizziness, GI bleed, back pain, seizure, CVA, palpatations, mental health, musculoskeletal)? @ -[not applicable] EKG interpreted by me (3pts min.). @ -[As above] X-rays interpreted by me (1pt min.). @ -[None done] CT interpreted by me (1pt min.). @ -[None done] U/S interpreted by me (1pt. min.). @ -[None done] What testing was considered but not performed or refused? (CT, X-rays, U/S, labs)? Why? @ -[None] What meds were considered but not given or refused? Why? @ -[None] Did you discuss the management of the patient with other professionals (professionals i.e. , PA, RELIEF MATE, lab, RT, psych nurse, high school social studies teacher, casino controller, teacher, aviation ordnance officer, case management assistant)? Give summary @ -[No] Was smoking cessation discussed for >3mins.? @ -[No] Was critical care preformed (if so, how long)? @ -[No] Were there social determinants of health that impacted care today? How? (Homelessness, low income, unemployed, alcoholism, drug addiction, transportation, low edu. Level, literacy, decrease access to med. care, prison, rehab)? @ -[No] Was there de-escalation of care discussed even if they declined (Discuss DNR or withdrawal of care, Hospice)? DNR status @ -[No] What co-morbidities impacted this encounter? (DM, HTN, Smoking, COPD, CAD, Cancer, CVA, ARF, Chemo, Hep., AIDS, mental health diagnosis, sleep apnea, morbid obesity)? @ -[None] Was patient admitted / discharged? Hospital course, mention meds given and route, prescriptions, significant lab abnormalities, going to OR and other pertinent info. @ -[hospital course] Undiagnosed new problem with uncertain prognosis? @ -[No] Drug Therapy requiring intensive monitoring for toxicity (Heparin, Nitro, Insulin, Cardizem)? @ -[No] Were any procedures done? @ -[No] Diagnosis/symptom? @ -[default] Acute, or Chronic, or Acute on Chronic? @ -[default] Uncomplicated (without systemic symptoms) or Complicated (systemic symptoms)? @ -[default] Side effects of treatment? @ -[No] Exacerbation, Progression, or Severe Exacerbation? @ -[No] Poses a threat to life or bodily function? How? (Chest pain, [place], ID, pneumonia, PE, COPD, DKA, ARF, appy, cholecystitis, CVA, Diverticulitis, Homicidal, Suicidal, threat to staff... and all critical care pts) @ -[No] (Rosa Cr) I saw patient for purpose of completing the clinical certification, patient is not forthcoming not wishing to discuss the petition. (Jesus Pascual) - Lab Data Lab Results 10/13/24 Range/Units 00:19 SARS-CoV-2 (PCR) Not Detected (Not Detectd) Disposition <Rosa Cr - Last Filed: 10/12/24 23:42> Is patient prescribed a controlled substance at d/c from ED?: No <Jesus Pascual - Last Filed: 10/14/24 17:11> Clinical Impression: Psychosis Disposition: TRANSFER TO PSYCH HOSP/UNIT Condition: Fair
[2024-10-13] MEDS ORDERED: MAGNESIUM HYDROXIDE 2,400 MG/30 ML CUP PO PRN (04:01)
[2024-10-13] MEDS ORDERED: ACETAMINOPHEN TAB 325 MG TAB PO PRN (04:01)
[2024-10-13] MEDS ORDERED: haloperidoL 5 MG TAB PO PRN (04:01)
[2024-10-13] MEDS ORDERED: HALOPERIDOL LACTATE 5 MG/ML 1 ML VIAL IM PRN (04:01)
[2024-10-13] MEDS ORDERED: LORazepam 2 MG/ML INJ IM PRN (04:01)
[2024-10-13] MEDS ORDERED: traZODone HCL 50 MG TAB PO PRN (04:01)
[2024-10-13] MEDS: NICOTINE 14MG/24HR PATCH TRANSDERM SCH (10:08)
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
[2024-10-13] MEDS: LITHIUM CARBONATE 300 MG CAP PO SCH (21:04)
[2024-10-13] MEDS: risperiDONE 1 MG TAB PO SCH (21:04)
--- NOTE | 2024-10-13 21:33 | P.CONS ---
History of Present Illness - Reason for Consult Consult date: 10/13/24 medical co-management - Chief Complaint psychosis - History of Present Illness Mikaela is a 39 yo F with past medical history significant for schizoaffective disorder The patient reports that she was admitted to inpatient [facility] back in 2020. She reports at that time her medications include lithium fluphenazine and trazodone. She expresses that she was told by a physician to stop taking these medications. She expresses that in 2010 or 2011 her grandfather had . She reports that she had started audio recording on her phone with an SD card. 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 Any recent she denies any alcohol use she denies any tobacco use however does report she occasionally uses cannabis. She reports that in the past she was diagnosed with preeclampsia and occasionally has had elevated blood pressure however does not take any medications at this time for that. Most recent vital signs are from 10:00 this morning which show a heart rate of 108 blood pressure 106/76. Only lab work on file reveals a COVID-19 test which was negative Review of Systems Pertinent positives and negatives as discussed in HPI, a complete review of systems was performed and all other systems are negative. Past Medical History Past Medical History: No Reported History History of Any Multi-Drug Resistant Organisms: None Reported Past Surgical History: No Surgical Hx Reported Past Anesthesia/Blood Transfusion Reactions: No Reported Reaction Smoking Status: Unknown if ever smoked - Past Family History Father Family Medical History: COPD Medications and Allergies Home Medications Medication Instructions Recorded Confirmed Type Acetaminophen Tab [Tylenol] 1,000 mg PO Q6H PRN 10/07/21 10/07/21 History Levothyroxine Sodium [Synthroid] 50 mcg PO DAILY 10/07/21 10/07/21 History Fluticasone Nasal [place] [Flonase 2 spray EA NOSTRIL DAILY #1 gm 10/14/21 Rx Nasal [place]] [place] Carbonate 600 mg PO HS 30 Days cap 10/14/21 Rx Melatonin 10 mg PO HS 30 Days tablet 10/14/21 Rx fluPHENAZine [Prolixin] 3 mg PO BID 3 Days tab 10/14/21 Rx fluPHENAZine decanoate [Prolixin 25 mg IM P19ENTH #1 each 10/14/21 Rx Decanoate] hydrOXYzine pamoate [Vistaril] 25 mg PO BID PRN 30 Days cap 10/14/21 Rx traZODone HCL [Desyrel] 50 mg PO HS PRN 30 Days tab 10/14/21 Rx Allergies Allergy/AdvReac Type Severity Reaction Status Date / Time No Known Allergies Allergy Verified 10/12/24 20:18 Physical Exam Vitals: Vital Signs Temp Pulse Resp BP Pulse Ox 10/13/24 10:08 108 H 106/76 10/13/24 05:31 98.1 F 104 H 18 147/96 99 Intake and Output 10/13/24 10/13/24 10/13/24 06:59 14:59 22:59 Other: Weight 46.777 kg 46.777 kg General: non toxic, no distress, appears stated age. discheleved appearance Derm: warm, dry Head: atraumatic, normocephalic, symmetric Eyes: EOMI, no lid lag, anicteric sclera, pupils equal round reactive to light ENT: Nose and ears atraumatic, no thrush, no pharyngeal erythema Neck: no cervical lymphadenopathy, trachea midline, supple Mouth: no lip lesion, mucus membranes moist Cardiovascular: S1S2 reg, no murmur Lungs: clear to auscultation bilateral Abdominal: soft, nontender to palpation, no guarding, Ext: no gross muscle atrophy Neuro: moving all extremities spontaneously Psych: tangential thoughts and occasional racing thoughts Assessment and Plan Assessment: #) schzioaffective disorder, bipolar type. Primary management as per pscyhiatry team. previously on lithium and fluphenazine however expresses was de-prescribed one of her physicians. Currently on risperidone 1 mg hs by psychiatry team and lithium 300 mg BID. Check random lithium level- although reports was not on lithium previously to admission #) Cannabis use disorder, recommend cessation uds pending #) History of hypothyroid disorder but not on any thyroid replacement. Previous med rec states levothyroxine 50 mcg daily. check tsh with free t4 to assess if thyroid replacement therapy warranted #) History of elevated bp without formal diagnosis of primary htn. monitor BP reading and will consider antihypertensives if needed UDS, urine , cbc, cmp, a1c, lipid profile, random lithium level and tsh with free t4 pending. Thank you for allowing us to take care of this patient. please do not hesitate to contact sound physicians if any questions arise. Time with Patient: Greater than 30
[2024-10-14 01:19] LABS: Basophils # (A) 0.12 10*3/uL (0.00-0.10); Basophils % (A) 1.7 %; Eosinophils # (A) 0.45 10*3/uL (0.04-0.35); Eosinophils % (A) 6.2 %; HCT 32.3 % (37.2-46.3); HGB 10.5 g/dL (12.0-15.0); Lymphocytes # (A) 3.28 10*3/uL (0.90-5.00); Lymphocytes % (A) 45.3 %; MCH 27.4 pg (27.0-32.0); MCHC 32.5 g/dL (32.0-37.0); MCV 84.3 fL (80.0-97.0); Mean Platelet Volume 10.2 fL (9.5-12.2); Monocytes # (A) 0.48 10*3/uL (0.20-1.00); Monocytes % (A) 6.6 %; Neutrophils # (A) 2.89 10*3/uL (1.80-7.70); Neutrophils % (A) 39.9 %; Platelet Count 383 10*3/uL (140-440); RBC 3.83 10*6/uL (4.10-5.20); RDW 15.7 % (11.5-14.5); WBC 7.24 10*3/uL (4.50-10.00)
[2024-10-14 01:20] LABS: African American GFR (CKD) >90 (>60 ml/min/1.73 sqM); Anion Gap 3 mmol/L; Blood Urea Nitrogen 13 mg/dL (7-17); Carbon Dioxide 32 mmol/L (22-30); Chloride 101 mmol/L (98-107); Glucose 109 mg/dL (74-99); Lithium <0.2 mmol/L; Non-African American GFR(CKD) >90 (>60 ml/min/1.73 sqM); Potassium 4.1 mmol/L (3.5-5.1); Sodium 136 mmol/L (137-145)
--- NOTE | 2024-10-14 09:52 | P.PN ---
Progress Note - Text Progress Note Date: 10/14/24 Dictation was produced using [employer] dictation software. Please excuse any grammatical, word or spelling errors. Interval history: Patient was seen in her room and was directable and agreeable to speak with the marketing writer in the office for psychiatric follow-up. The patient states that she is feeling tired, reported that her sleep was not that bad however they woke her up at mid night for blood draw. 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 States that her girl friend changed her address to her house. Pt is hyperverabl, with fast and pressured speech, tangential, paranoid, "there is nothing wrong with me." States that she is stressed out a little about her situation, and reported that she has been recoding things on her phone, and "wants to make on EMR record nationwide, so everyone in the nation can see patients records." Pt went on tangent. She denied any current SI/HI or self harm, she states that she is recording a 10 minutes audio to send to her cousin. Patient displayed paranoid delusions, stating that someone has been calling her phone and listening in on her conversations, breaking into her house, she went on tangent and marketing writer needed to redirect her multiple time. She admitted to good appetite, and reported that she is getting along well with everyone and reported that she did not attend groups. Pt was encouraged to take her medication, she states that she never been on any psych medication and is not going to at this time. Mental status exam: General Appearance: Patient appears to be stated age is alert, directable, and attempts to cooperate. Patient appears to have fair hygiene and grooming. Behavior: Patient is seated without any agitated behavior. Speech: Patient's speech is pressured, fast, she is hyperverbal Mood/Affect: Patient reports their mood is "I do not need medications", affect is congruent, paranoid and constricted. Suicidality/Homicidality: Patient denies having any homicidal ideation intent or plan. Denies any suicidal ideations intent or plan Perceptions: Patient denies any visual hallucinations and denies any auditory hallucinations Though content/process: There is evidence of paranoid delusions, flight of ideas, illogical and nonsensical thought process Memory and concentration: AOX3, grossly intact for the purposes of this session. Can spell "WORLD" backwards Judgment and insight: Poor Assessment: Schizoaffective disorder, bipolar type Cannabis use disorder History of methamphetamine use disorder Plan: Continue with current diagnosis. Patient continues to meet criteria for inpatient psychiatric admission for symptom stabilization and safety. Patient will be maintained on current psychotropic medication regimen which include Risperdal 1 mg p.o. at bedtime, lithium 300 mg p.o. twice daily, medication was supposed to start yesterday however patient has been refusing her medication, she lacks insight into her current mental illness, does not see benefit of medication, thought process was illogical and nonsensical, she has fast, pressured and hyperverbal speech. Patient came in on petition and clinical certification, second clinical CERT was completed yesterday. Monitor for medication compliance and for any psychotropic medication side effects. Will continue to monitor ongoing response to treatment. Encouraged participation in milieu.
[2024-10-15 08:56] LABS: Basophils # (A) 0.09 10*3/uL (0.00-0.10); Basophils % (A) 1.4 %; Eosinophils # (A) 0.22 10*3/uL (0.04-0.35); Eosinophils % (A) 3.4 %; HCT 38.9 % (37.2-46.3); HGB 12.2 g/dL (12.0-15.0); Lymphocytes # (A) 2.81 10*3/uL (0.90-5.00); Lymphocytes % (A) 43.5 %; MCH 26.9 pg (27.0-32.0); MCHC 31.4 g/dL (32.0-37.0); MCV 85.9 fL (80.0-97.0); Mean Platelet Volume 9.9 fL (9.5-12.2); Monocytes % (A) 4.6 %; Neutrophils # (A) 3.02 10*3/uL (1.80-7.70); Neutrophils % (A) 46.8 %; Platelet Count 477 10*3/uL (140-440); RBC 4.53 10*6/uL (4.10-5.20); RDW 15.7 % (11.5-14.5); WBC 6.46 10*3/uL (4.50-10.00)
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
[2024-10-15 09:03] LABS: ALT 11 U/L (4-34); AST 19 U/L (14-36); African American GFR (CKD) >90 (>60 ml/min/1.73 sqM); Albumin 4.4 g/dL (3.5-5.0); Alkaline Phosphatase 43 U/L (38-126); Anion Gap 6 mmol/L; Blood Urea Nitrogen 13 mg/dL (7-17); Calcium 10.2 mg/dL (8.4-10.2); Carbon Dioxide 28 mmol/L (22-30); Chloride 104 mmol/L (98-107); Glucose 148 mg/dL (74-99); Non-African American GFR(CKD) >90 (>60 ml/min/1.73 sqM); Potassium 4.1 mmol/L (3.5-5.1); Sodium 138 mmol/L (137-145); Total Bilirubin 0.8 mg/dL (0.2-1.3)
[2024-10-15 10:05] LABS: T4, Free (Free Thyroxine) 1.22 ng/dL (0.78-2.19)
[2024-10-15 13:27] LABS: Chol/HDL Ratio 2.87 Ratio; LDL Cholesterol,Calculated 99.8 mg/dL (0.0-131.0); VLDL Calculation 19.38 mg/dL (5.00-40.00)
--- NOTE | 2024-10-16 12:28 | P.PN ---
Progress Note - Text Progress Note Date: 10/16/24 Interval History: Patient was seen in her room and was directable and agreeable to speak with wr iter in the room privately. She continues to refuse her psychotropic medications, displaying poor insight and stated that she does not have a mental health issue, more medical. Patient was reminded of the petition filled out by her daughter and predominant paranoia that is still displayed here to which she states her paranoia is legit and that she has recordings at home to prove that people have been messing with her. She continues to display flight of ideas, pressured speech however interruptible. She claims to not take her medications due to concerns with however when attempting to change medications in accordance to this patient then states "nothing is wrong with me and I do not need medications". She reports poor sleep overnight due to her roommate snoring. 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 At this time patient denies any suicidal or homicidal ideations, intent or plan. Patient denies any auditory, visual hallucinations. Mental Status Exam: General Appearance: Patient appears to be stated age is alert, requires frequent redirection but cooperative. Behavior: Patient is calmly laying without any agitated behavior. Speech: Patient's speech is fluent and pressured Mood/Affect: Mood is "all right", affect is congruent and constricted. Suicidality/Homicidality: Patient denies having any suicidal or homicidal ideation intent or plan. Perceptions: Patient denies any visual hallucinations and denies any auditory hallucinations Though content/process: There is evidence of flight of ideas, paranoia, grandiose delusions Memory and concentration: AOX3, grossly intact for the purposes of this session Judgment and insight: Poor Assessment Schizoaffective disorder, bipolar type Cannabis use disorder History of methamphetamine use disorder Plan: -Patient continues to meet criteria for inpatient psychiatric admission for symptom stabilization and safety. Patient has not signed adult voluntary form and medication consent and was placed in patient's chart. -Medications: Continue to offer Risperdal 1 mg at bedtime for psychosis, lithium 300 mg twice daily for mood stabilization (note patient has been refusing) -When necessary Ativan and Haldol for agitation/aggression. -Labs: Grossly WNL -SW on board for discharge planning. Encouraged the patient to participate in milieu. Currently awaiting deferral with deputy county attorney and court date.
[2024-10-16] MEDS: LORazepam 1 MG TAB PO PRN (21:53)
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
[2024-10-17] MEDS: ARIPiprazole 10 MG TAB PO SCH (20:40)
[2024-10-18] MEDS: IBUPROFEN 600 MG TAB PO PRN (09:10)
[2024-10-18] MEDS: LORATADINE 10 MG TAB PO PRN (09:10)
[2024-10-18 09:50] VITALS: BMI 16.9
--- NOTE | 2024-10-18 12:59 | P.PN ---
Progress Note - Text Progress Note Date: 10/18/24 Interval History: Patient was seen in bed and was directable and agreeable to speak with documentation writer in the room privately. She did take her Abilify last night, reporting no adverse effects or concerns with this medication. She reports feeling congested however did take Claritin this morning. Patient was upset after being told that the diet consultant will return until next Wednesday for her to sign her deferral as she did not sign this this past Wednesday and thus is awaiting court for next Wednesday. She was upset that she will miss [place] with her children however when asked she states she has not spoken to them while being here, claiming her daughter was coerced into filling out the petition. She claims she will not attend groups and just lay in bed until next Wednesday as she is upset about being here. At this time patient denies any suicidal or homicidal ideations, intent or plan. Patient denies any auditory, visual hallucinations. Patient denies any side effects from the medications and has been compliant with meds. Mental Status Exam: General Appearance: Patient appears to be stated age is alert, directable, and cooperative. Behavior: Patient is calmly laying without any agitated behavior. Speech: Patient's speech is fluent and talkative Mood/Affect: Mood is "upset", affect is congruent and constricted. Suicidality/Homicidality: Patient denies having any suicidal or homicidal ideation intent or plan. Perceptions: Patient denies any visual hallucinations and denies any auditory hallucinations Though content/process: There is evidence of paranoia, flight of ideas have improved Memory and concentration: AOX3, grossly intact for the purposes of this session Judgment and insight: Historically poor however improving mildly Assessment Schizoaffective disorder, bipolar type Cannabis use disorder History of methamphetamine use disorder Plan: -Patient continues to meet criteria for inpatient psychiatric admission for symptom stabilization and safety. Patient has not signed adult voluntary form and medication consent and was placed in patient's chart. -Medications: Increase Abilify to 15 mg at bedtime for psychosis, continue trazodone 50 mg as needed at bedtime for insomnia -When necessary Ativan and Haldol for agitation/aggression. -Labs: Grossly WNL -SW on board for discharge planning. Encouraged the patient to participate in milieu. Patient did not sign deferral on Wednesday, diet consultant states they will return next Wednesday for patient to possibly sign deferral/consent to treatment otherwise court is scheduled for next Wednesday
[2024-10-18] MEDS: LATANOPROST 0.005% OPHTH DROPS 2.5 ML BTL BOTH EYES SCH (21:50)
[2024-10-18] MEDS: ARIPiprazole 15 MG TAB PO SCH (21:50)
--- NOTE | 2024-10-19 12:29 | P.PN ---
Progress Note - Text Progress Note Date: 10/19/24 Interval History: Patient was seen in bed and was directable and agreeable to speak with process description writer in the room. She continues to be upset due to her previously not signing a deferral however now wanting to as she has been adherent with medications. She requests to change research worker kitchen, as she feels as though this may speed up the process. Court is scheduled for next Wednesday however the coiled tubing supervisor will return on Wednesday. She has been adherent with her Abilify last night, denying any adverse effects. She did display paranoia, requesting the live recordings that were done in her room with her roommate yesterday however she did not wish to share the content of the conversation. Sucker Machine Operator informed patient that there are no recordings or videos in the room however patient was adamant that she has been recorded. She was less fixated on the previous paranoid delusions regarding someone messing with her at her house. She denied auditory hallucinations however did describe her sense of hearing as super Sonic, stating that she can hear the smallest noise in her environment. She had positive messa ges posted on her wall from her current partner and ask. At this time patient denies any suicidal or homicidal ideations, intent or plan. Patient denies any auditory, visual hallucinations and denies any paranoia or delusions. Patient denies any side effects from the medications and has been compliant with meds. Mental Status Exam: General Appearance: Patient appears to be stated age is alert, directable, and cooperative. She is thin Behavior: Patient is calmly laying without any agitated behavior. Less irritable Speech: Patient's speech is fluent and talkative Mood/Affect: Mood is improving mildly, affect is congruent and constricted. Suicidality/Homicidality: Patient denies having any suicidal or homicidal ideation intent or plan. Perceptions: Patient denies any visual hallucinations and denies any auditory hallucinations Though content/process: There is evidence of paranoia, flight of ideas have lessened Memory and concentration: AOX3, grossly intact for the purposes of this session Judgment and insight: Historically poor however improving mildly Assessment Schizoaffective disorder, bipolar type Cannabis use disorder History of methamphetamine use disorder Plan: -Patient continues to meet criteria for inpatient psychiatric admission for symptom stabilization and safety. Patient has not signed adult voluntary form and medication consent and was placed in patient's chart. -Medications: Increase Abilify to 20 mg at bedtime for psychosis, continue trazodone 50 mg as needed at bedtime for insomnia -When necessary Ativan and Haldol for agitation/aggression. -Labs: Grossly WNL -SW on board for discharge planning. Encouraged the patient to participate in milieu. Patient did not sign deferral, coiled tubing supervisor returning for patient to consent on Wednesday otherwise full hearing is scheduled for next Wednesday
[2024-10-19] MEDS: LORATADINE-PSEUDOEPH 5-120 MG 1 EACH TAB.ER.12H PO PRN (22:15)
--- NOTE | 2024-10-20 10:48 | P.PN ---
Progress Note - Text Progress Note Date: 10/20/24 Interval History: Patient was seen wandering the hallways and was directable and agreeable to sp misa with commercial insurance underwriter in the office. Patient continues to present with pressured speech, paranoid delusions with a list of names for her investigation regarding pseudoephedrine related to her mother. Patient continues to be fixated on these delusions, expressing that her relatives disagree however she does not wish to sign an KALYN so that commercial insurance underwriter can contact her daughter her mother. Lane Attendant discussed with patient the need to change medications as Abilify does not appear to be a good medication for her however patient was resistant to this change however eventually was amenable to starting Haldol instead. At this time patient denies any suicidal or homicidal ideations, intent or plan. Patient denies any auditory, visual hallucinations. Patient denies any side effects from the medications and has been compliant with meds. Mental Status Exam: General Appearance: Patient appears to be stated age is alert, directable, and cooperative. She is thin Behavior: Patient is calmly seated without any agitated behavior. Speech: Patient's speech is fluent and pressured. Mood/Affect: Mood is improving mildly, affect is congruent and constricted. Suicidality/Homicidality: Patient denies having any suicidal or homicidal ideation intent or plan. Perceptions: Patient denies any visual hallucinations and denies any auditory hallucinations Though content/process: There is evidence of paranoid delusions Memory and concentration: AOX3, grossly intact for the purposes of this session Judgment and insight: Historically poor however improving mildly Assessment Schizoaffective disorder, bipolar type Cannabis use disorder History of methamphetamine use disorder Plan: -Patient continues to meet criteria for inpatient psychiatric admission for symptom stabilization and safety. Patient has not signed adult voluntary form and medication consent and was placed in patient's chart. -Medications: Discontinue Abilify 20 mg and start Haldol 5 mg at bedtime for psychosis, continue trazodone 50 mg as needed at bedtime for insomnia -When necessary Ativan and Haldol for agitation/aggression. -Labs: Grossly WNL -SW on board for discharge planning. Encouraged the patient to participate in milieu. Patient did not sign deferral however music professor is returning on Wednesday for patient to consent otherwise full hearing scheduled for next Wednesday
[2024-10-20] MEDS: haloperidoL 5 MG TAB PO SCH (21:31)
--- NOTE | 2024-10-21 13:53 | P.PN ---
Subjective Progress Note Date: 10/21/24 Principal diagnosis: Schizoaffective disorder Patient came readily to speak with video games storywriter in the office. Patient does not have pressured speech, she listens well and considers her replys but when she talks she does talk rapidly but not loudly. She says, "I have always talked like this and could not give a speech in class because I talked to fast. Patient continues to have fixed delusions but sierra any hallucinations. She did not want to take Haldol but did develop significant restlessness from it and could not sleep and has felt dizzy when standing up. She talked to a relative who is a pharmacist who was worried about tardive dyskinesia so now she does not want to take it. Mental Status Exam: General Appearance: Patient appears to be stated age is alert, directable, and cooperative. She is thin Behavior: Patient is calmly seated without any agitated behavior, but does have high psychomotor restlessness. Speech: Patient's speech is fluent and pressured. Mood/Affect: Mood is improving mildly, affect is congruent and constricted. Suicidality/Homicidality: Patient denies having any suicidal or homicidal ideation intent or plan. Perceptions: Patient denies any visual hallucinations and denies any auditory hallucinations Though content/process: There is evidence of paranoid delusions Memory and concentration: AOX3, grossly intact for the purposes of this session Judgment and insight: Historically poor however improving mildly Assessment Schizoaffective disorder, bipolar type Cannabis use disorder History of methamphetamine use disorder Plan: -Patient continues to meet criteria for inpatient psychiatric admission for symptom stabilization and safety. Patient has not signed adult voluntary form and medication consent and was placed in patient's chart. -Medications:She did not have side effects from the Abilify but did have continued fixed delusions, (which often respond poorly to antipsychotics). Go back to Abilify and increase to 30mg qhs, continue trazodone 50 mg as needed at bedtime for insomnia -When necessary Ativan and Haldol for agitation/aggression. -Labs: Grossly WNL -SW on board for discharge planning. Encouraged the patient to participate in milieu. Patient did not sign deferral, however confectionery laboratory manager is returning on Wednesday for patient to consent otherwise full hearing scheduled for next Wednesday Objective - Vital Signs Vital signs: Vital Signs Temp 99 F 10/21/24 09:55 Pulse 76 10/21/24 09:55 Resp 16 10/21/24 09:55 BP 104/64 10/21/24 09:55 Pulse Ox 99 10/21/24 09:55 FiO2 - Labs CBC & Chem 7: 10/15/24 08:33 10/15/24 08:33
[2024-10-21] MEDS: ARIPiprazole 15 MG TAB PO SCH (22:49)
--- NOTE | 2024-10-22 12:14 | P.PN ---
Subjective Progress Note Date: 10/22/24 Principal diagnosis: Schizoaffective disorder Patient was sleeping at noon did not want to come and talk but talks fine in her room. Patient does not have pressured speech, she listens well and considers her replys but when she talks she does talk rapidly but not loudly. She says, "I have always talked like this and could not give a speech in class because I talked to fast. Patient continues to have fixed delusions but sierra any hallucinations. She did not want to take Haldol but did develop significant restlessness from it and could not sleep and has felt dizzy when standing up. She talked to a relative who is a pharmacist who was worried about tardive dyskinesia so now she does not want to take it. She says she is doing well and does not want to change any of the medications. Mental Status Exam: General Appearance: Patient appears to be stated age is alert, directable, and cooperative. She is thin Behavior: Patient is calmly seated without any agitated behavior, but does have high psychomotor restlessness. Speech: Patient's speech is fluent and pressured. Mood/Affect: Mood is improving mildly, affect is congruent and constricted. Suicidality/Homicidality: Patient denies having any suicidal or homicidal ideation intent or plan. Perceptions: Patient denies any visual hallucinations and denies any auditory hallucinations Though content/process: There is evidence of paranoid delusions Memory and concentration: AOX3, grossly intact for the purposes of this session Judgment and insight: Historically poor however improving mildly Assessment Schizoaffective disorder, bipolar type Cannabis use disorder History of methamphetamine use disorder Plan: No changes at this time -Patient continues to meet criteria for inpatient psychiatric admission for symptom stabilization and safety. Patient has not signed adult voluntary form and medication consent and was placed in patient's chart. -Medications:She did not have side effects from the Abilify but did have continued fixed delusions, (which often respond poorly to antipsychotics). Go back to Abilify and increase to 30mg qhs, continue trazodone 50 mg as needed at bedtime for insomnia -When necessary Ativan and Haldol for agitation/aggression. -Labs: Grossly WNL -SW on board for discharge planning. Encouraged the patient to participate in milieu. Patient did not sign deferral, however intensive care anaesthetist is returning on Wednesday for patient to consent otherwise full hearing scheduled for next Wednesday Objective - Vital Signs Vital signs: Vital Signs Temp 98.0 F 10/22/24 09:00 Pulse 116 H 10/22/24 09:00 Resp 16 10/22/24 09:00 BP 111/76 10/22/24 09:00 Pulse Ox 97 10/22/24 09:00 FiO2 Intake & Output 10/21/24 10/22/24 10/22/24 18:59 06:59 18:59 Weight 53.07 kg - Labs CBC & Chem 7: 10/15/24 08:33 10/15/24 08:33
--- NOTE | 2024-10-23 12:15 | P.PN ---
Progress Note - Text Progress Note Date: 10/23/24 Interval History: Patient was seen in her room and was directable and agreeable to speak with wr iter in the room. Patient does appear less delusional, mild paranoia evident. She reports some adverse effects to the Haldol including feeling dizzy, difficulty with sleep and being less focus. She was goal oriented today, talked about her plans to return to work and how some of her friends will live with her. She states her father is able to pick her up upon discharge. She did become upset, pleading with hand sign writer when told she would not be discharged today given the necessity to change to [facility]. She was agreeable with transitioning to [facility] however. At this time patient denies any suicidal or homicidal ideations, intent or plan. Patient denies any auditory, visual hallucinations and denies any delusions. Patient denies any side effects from the medications and has been compliant with meds. Mental Status Exam: General Appearance: Patient appears to be stated age is alert, directable, and cooperative. She is thin Behavior: Patient is calmly seated without any agitated behavior. Speech: Patient's speech is fluent and talkative Mood/Affect: Mood is improving mildly, affect is congruent and constricted. Suicidality/Homicidality: Patient denies having any suicidal or homicidal nash ation intent or plan. Perceptions: Patient denies any visual hallucinations and denies any auditory hallucinations Though content/process: There is evidence of mild paranoia, delusions have lessened Memory and concentration: AOX3, grossly intact for the purposes of this session Judgment and insight: Historically poor however improving mildly Assessment Schizoaffective disorder, bipolar type Cannabis use disorder History of methamphetamine use disorder Plan: -Patient continues to meet criteria for inpatient psychiatric admission for symptom stabilization and safety. Patient has not signed adult voluntary form and medication consent and was placed in patient's chart. -Medications: Abilify maintena 400 mg IM to be given today, continue oral Abilify 30 mg at bedtime for the next 2 weeks then can be discontinued, trazodone 50 mg as needed at bedtime for insomnia -When necessary Ativan and Haldol for agitation/aggression. -Labs: Grossly WNL -SW on board for discharge planning. Encouraged the patient to participate in milieu. Patient consented last Wednesday to court order. Anticipate discharge back home tomorrow pending transition to [facility]
[2024-10-23] MEDS: ARIPiprazole IM 400 MG VIAL (NO COST) PHARMACY STOCK IM ONE (16:30)
[2024-10-23] MEDS: diphenhydrAMINE 2% CREAM 28.4 GM TUBE TOPICAL SCH (17:21)
[2024-10-23 21:12] VITALS: RESP 18
[2024-10-23] MEDS: MAG HYDROX/AL HYDROX/SIMETH 355 ML BOTTLE PO PRN (23:27)
[2024-10-24 08:34] VITALS: BP 124/79; PULSE 102; TEMP 98.2
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
== END 2024-10-24 13:08 | disposition home or self-care (01) | DRG 761 ==
LOC: EC 19:57 → EEVIPCON 19:57 → 3MHU 10-13 03:49
PROVIDERS: ADMIT Psychiatry & Neurology Psychiatry; ATTEND Psychiatry & Neurology Psychiatry
DX: F25.0 Schizoaffective disorder, bipolar type (principal); F12.10 Cannabis abuse, uncomplicated; F15.10 Other stimulant abuse, uncomplicated; E03.9 Hypothyroidism, unspecified; F41.9 Anxiety disorder, unspecified; G47.00 Insomnia, unspecified; Z56.0 Unemployment, unspecified; Z63.5 Disruption of family by separation and divorce; Z79.890 Hormone replacement therapy; Z79.899 Other long term (current) drug therapy; Z71.51 Drug abuse counseling and surveillance of drug abuser; Z71.41 Alcohol abuse counseling and surveillance of alcoholic
CPT/HCPCS: 80048; 80053; 80061; 80178; 82075; 83036; 84439; 84443; 85025; 87635; 99285